=== PATIENT | female | born 1970 | race Caucasian/White ===

== ENCOUNTER 2017-01-04 16:14 | Emergency (ER) | payer SELFPAY ==
[~2017-01-04] VITALS: Ht 160 cm; Wt 100.0 kg
[2017-01-04] MEDS ORDERED: SODIUM CHLOR 0.9% 1000 ML INJ 1,000 ML IV SCH (16:28)
[2017-01-04] MEDS ORDERED: KETOROLAC TROMETHAMINE 30 MG/ML (IVP) VIAL IV PUSH ONE (16:30)
[2017-01-04 16:31] VITALS: BP 111/76; PULSE 97; RESP 19; TEMP 98.3; O2SAT 97
--- NOTE | 2017-01-04 16:55 | PD ---
HPI Chief Complaint: Abdominal Pain Time Seen by Provider: 16:40 Travel History International Travel<30 days: No Contact w/Intl Traveler<30days: No Traveled to known affect area: No History of Present Illness HPI 46-year-old female brought in via EMS with complaint of left lower abdominal pain that radiates to the groin. Patient states the pain started a couple hours ago today and reports nausea but denies any vomiting or diarrhea. She was given 4 mg of Zofran IV by EMS during transport. Patient has history of nephrolithiasis and diverticulitis. Patient denies any acute trouble voiding or hematuria. Patient denies any dizziness, lightheadedness, chest pain, shortness of breath or fevers PFSH Past Medical History Depression: Yes Diverticulitis: Yes Medical other: Yes (ADD) ?: Not : 4 Para: 3 : 1 Tubal Ligation: Yes Social History Alcohol Use: No Tobacco Use: Yes Substance Use: No Allergies-Medications (Allergen,Severity, Reaction): Coded Allergies: No Known Allergies (Unverified , 01/04/17) Review of Systems Except as stated in HPI: all other systems reviewed are Neg Physical Exam Narrative GENERAL: Well-nourished well-developed female complaining of left lower abdominal pain and nausea but no vomiting or diarrhea. SKIN: Focused skin assessment warm/dry. HEAD: Atraumatic. Normocephalic. EYES: Pupils equal and round. No scleral icterus. No injection or drainage. ENT: No nasal bleeding or discharge. Mucous membranes pink and moist. NECK: Trachea midline. No JVD. CARDIOVASCULAR: Regular rate and rhythm. No murmur appreciated. RESPIRATORY: No accessory muscle use. Clear to auscultation. Breath sounds equal bilaterally. GASTROINTESTINAL: Abdomen soft, non-tender, nondistended. Hepatic and splenic margins not palpable. MUSCULOSKELETAL: No obvious deformities. No clubbing. No cyanosis. No edema. NEUROLOGICAL: Awake and alert. No obvious cranial nerve deficits. Motor grossly within normal limits. Normal speech. PSYCHIATRIC: Appropriate mood and affect; insight and judgment normal. Data Data Last Documented VS Vital Signs Date Time Temp Pulse Resp B/P (MAP) Pulse Ox O2 Delivery O2 Flow Rate FiO2 01/04/17 18:00 82 17 116/69 (85) 97 Room Air 01/04/17 16:31 98.3 Orders Orders Complete Blood Count With Diff (01/04/17 16:28) Comprehensive Metabolic Panel (01/04/17 16:28) Lipase (01/04/17 16:28) Urinalysis - C+S If Indicated (01/04/17 16:28) Ct Abd/Pel W/O Iv Contrast (01/04/17 16:28) Iv Access Insert/Monitor (01/04/17 16:28) Ecg Monitoring (01/04/17 16:28) NPO (01/04/17 16:28) Sodium Chlor 0.9% 1000 Ml Inj (Ns 1000 M (01/04/17 16:28) Ed Urine Pregnancytest Poc (01/04/17 16:28) Ketorolac Inj (Toradol Inj) (01/04/17 16:30) Urine Culture (01/04/17 16:30) Ceftriaxone Inj (Rocephin Inj) (01/04/17 18:00) Labs Laboratory Tests Test 01/04/17 16:30 01/04/17 16:40 Urine Color YELLOW Urine Turbidity CLOUDY Urine pH 6.0 Urine Specific [place] 1.030 Urine Protein 30 mg/dL Urine Glucose (UA) NEG mg/dL Urine Ketones NEG mg/dL Urine Occult Blood MOD Urine Nitrite NEG Urine Bilirubin NEG Urine Urobilinogen LESS THAN 2.0 MG/DL Urine Leukocyte Esterase TRACE Urine RBC 81 /hpf Urine WBC 13 /hpf Urine Squamous Epithelial Cells 26 /hpf Urine Calcium Oxalate Crystals MOD /hpf Urine Amorphous Sediment RARE Urine Mucus FEW /lpf Microscopic Urinalysis Comment CULTURE INDICATED White Blood Count 16.2 TH/MM3 Red Blood Count 4.06 MIL/MM3 Hemoglobin 12.1 GM/DL Hematocrit 35.9 % Mean Corpuscular Volume 88.4 FL Mean Corpuscular Hemoglobin 29.8 PG Mean Corpuscular Hemoglobin Concent 33.8 % Red Cell Distribution Width 14.8 % Platelet Count 334 TH/MM3 Mean Platelet Volume 8.0 FL Neutrophils (%) (Auto) 62.8 % Lymphocytes (%) (Auto) 26.4 % Monocytes (%) (Auto) 9.3 % Eosinophils (%) (Auto) 0.8 % Basophils (%) (Auto) 0.7 % Neutrophils # (Auto) 10.2 TH/MM3 Lymphocytes # (Auto) 4.3 TH/MM3 Monocytes # (Auto) 1.5 TH/MM3 Eosinophils # (Auto) 0.1 TH/MM3 Basophils # (Auto) 0.1 TH/MM3 CBC Comment DIFF FINAL Differential Comment Blood Urea Nitrogen 10 MG/DL Creatinine 0.64 MG/DL Random Glucose 109 MG/DL Total Protein 7.1 GM/DL Albumin 2.9 GM/DL Calcium Level 7.5 MG/DL Alkaline Phosphatase 62 U/L Aspartate Amino Transf (AST/SGOT) 28 U/L Alanine Aminotransferase (ALT/SGPT) 24 U/L Total Bilirubin 0.2 MG/DL Sodium Level 139 MEQ/L Potassium Level 3.9 MEQ/L Chloride Level 107 MEQ/L Carbon Dioxide Level 23.5 MEQ/L Anion Gap 9 MEQ/L Estimat Glomerular Filtration Rate 100 ML/MIN Lipase 131 U/L MDM Medical Decision Making Medical Screen Exam Complete: Yes Emergency Medical Condition: Yes Medical Record Reviewed: Yes Differential Diagnosis Nephrolithiasis versus UTI versus diverticulitis versus gastroenteritis Narrative Course 46-year-old female presents to the ED with complaint of left lower quadrant abdominal pain and nausea. She denies any vomiting, diarrhea or fevers. The pain started a couple hours ago. She does have a history of nephrolithiasis and diverticulitis. She denies any acute difficulty voiding or hematuria. CBC , CMP, lipase, UA, abdominal CAT scan ordered and pending. 1 L normal saline bolus and 30 mg IV Toradol ordered. CBC: WBC 16.2 otherwise unremarkable, CMP: Shows no acute abnormality, LIPASE WITHIN NORMAL LIMITS AT 131, UA: High rbc's and wbc's and leukocyte Estrace with culture indicated and pending ABD CT: 1.30.7CM Left renal calculus with no hydronephrosis Patient given 1 g of Rocephin IV for pyelonephritis Dr. Pires, urologist oncology physician, called and recommended Cipro 500 mg by mouth 5 days, pain control and to follow-up with him and his office tomorrow Patient will be discharged home with prescription for Cipro for pyelonephritis and [place] for pain and mandatory referral to follow up with Dr. Pires. Diagnosis Primary Impression: Pyelonephritis Additional Impression: Nephrolithiasis Referrals: Salvador Pires MD Patient Instructions: General Instructions, Kidney Stones (ED), Urinary Tract Infection in Women (ED) Additional Instructions: Take Cipro as directed until gone Take [place] as directed as needed for pain, use caution as this medication may make you drowsy do not drive or operate heavy machinery with this medication Take Zofran as directed as needed for nausea Follow-up with Dr. Pires tomorrow in his office, a mandatory referral has been placed Return to the emergency department for any worsening symptoms Med/Other Pt SpecificInfo: Prescription(s) given Scripts Ondansetron Odt (Ondansetron Odt) 4 Mg Tab 4 MG SL Q6HR Y for Nausea/Vomiting, #12 TAB 0 Refills Prov: Kim Wallace 01/04/17 Ciprofloxacin (Cipro) 500 Mg Tab 500 MG PO BID for Infection for 5 Days, TAB 0 Refills Prov: Kim Wallace 01/04/17 Kim Wallace Jan 04, 2017 16:55
--- NOTE | 2017-01-04 17:21 | RADRPT ---
EXAM DATE/TIME: 01/04/2017 17:10 [facility] COMPARISON: No previous studies available for comparison. INDICATIONS : Left flank and lower quadrant pain. ORAL CONTRAST: No oral contrast ingested. RADIATION DOSE: 8.48 CTDIvol (mGy) MEDICAL HISTORY : Diverticulitis. Renal calculi. SURGICAL HISTORY : Tubal ligation. ENCOUNTER: Initial ACUITY: 1 day PAIN SCALE: 9/10 LOCATION: Left lower quadrant flank TECHNIQUE: Volumetric scanning of the abdomen and pelvis was performed. Using automated exposure control and ad justment of the mA and/or kV according to patient size, radiation dose was kept as low as reasonably achievable to obtain optimal diagnostic quality images. DICOM format image data is available electro nically for review and comparison. FINDINGS: LOWER LUNGS: The visualized lower lungs are clear. LIVER: Homogeneous density without lesion. There is no dilation of the biliary tree. No calcified gallston es. SPLEEN: Normal size without lesion. PANCREAS: Within normal limits. KIDNEYS: Normal in size and shape. There is no mass or hydronephrosis. There is a 1.3 x 0.7 cm left renal minal culus in the central collecting system. The ureters are unremarkable. ADRENAL GLANDS: Within normal limits. VASCULAR: There is no aortic aneurysm. BOWEL/MESENTERY: The stomach, small bowel, and colon demonstrate no acute abnormality. There is no free intraperitone al air or fluid. ABDOMINAL WALL: Within normal limits. RETROPERITONEUM: There is no lymphadenopathy. BLADDER: No wall thickening or mass. REPRODUCTIVE: Within normal limits. INGUINAL: There is no lymphadenopathy or hernia. MUSCULOSKELETAL: Within normal limits for patient age. CONCLUSION: 1.3 x 0.7 cm central left renal calculus with no hydronephrosis. Juarez Barker MD on January 04, 2017 at 17:17 Board Certified Radiologist. This report was verified electronically.
[2017-01-04 17:31] LABS: AUTOMATED NEUTROPHIL # 10.2 TH/MM3 (1.8-7.7); BASOPHIL # 0.1 TH/MM3 (0-0.2); BASOPHIL % 0.7 % (0.0-2.0); EOSINOPHIL # 0.1 TH/MM3 (0-0.4); EOSINOPHIL % 0.8 % (0.0-4.0); HEMATOCRIT 35.9 % (35.0-46.0); HEMO FLAGS DIFF FINAL; LYMPH % 26.4 % (9.0-44.0); LYMPHOCYTE # 4.3 TH/MM3 (1.0-4.8); MEAN CELL VOLUME 88.4 FL (80.0-100.0); MEAN CORPUSCULAR HEMOGLOBIN 29.8 PG (27.0-34.0); MEAN CORPUSCULAR HGB CONC 33.8 % (32.0-36.0); MONO % 9.3 % (0.0-8.0); NEUT % 62.8 % (16.0-70.0); PLATELET COUNT 334 TH/MM3 (150-450); RED BLOOD COUNT 4.06 MIL/MM3 (4.00-5.30); RED CELL DISTRIBUTION WIDTH 14.8 % (11.6-17.2); WHITE BLOOD COUNT 16.2 TH/MM3 (4.0-11.0)
[2017-01-04 17:34] LABS: BLOOD, URINE MOD (NEG); CALCIUM OXALATE CRYSTALS,URINE MOD /hpf; COMMENT (UR) CULTURE INDICATED; CULTURE IF INDICATED CULTURE INDICATED; GLUCOSE,URINE NEG (NEG); KETONE, URINE NEG (NEG); MUCUS URINE FEW /lpf (OCC); NITRITE,URINE NEG (NEG); SQUAMOUS EPITHELIAL CELL URINE 26 /hpf (0-5); URINE COLOR YELLOW (YELLW/STRAW)
[2017-01-04 17:48] LABS: ALKALINE PHOSPHATASE 62 U/L (45-117); TOTAL BILIRUBIN ADULT 0.2 MG/DL (0.2-1.0)
[2017-01-04 18:00] VITALS: BP 116/69; PULSE 82; RESP 17; O2SAT 97
[2017-01-04] MEDS ORDERED: cefTRIAXone INJ 1,000 MG in SODIUM CHLORIDE 0.9% INJ 100 ML IV ONE (18:00)
[2017-01-04 18:04] LABS: ALT (GPT) 24 U/L (10-53); ANION GAP 9 MEQ/L (5-15); AST (GOT) 28 U/L (15-37); BICARBONATE 23.5 MEQ/L (21.0-32.0); BLOOD UREA NITROGEN 10 MG/DL (7-18); CHLORIDE 107 MEQ/L (98-107); GLOMERULAR FILTRATION RATE 100 ML/MIN (>89); SODIUM (NA) 139 MEQ/L (136-145)
[2017-01-04 18:05] LABS: POTASSIUM 3.9 MEQ/L (3.5-5.1)
[2017-01-04] MEDS ORDERED: CIPR-9 PO (18:31)
[2017-01-04] MEDS ORDERED: ONDA4TAB7 SL (18:31)
[2017-01-04] MEDS ORDERED: NORC5TAB PO (18:33)
== END 2017-01-04 19:16 | disposition home or self-care (01) ==
LOC: NEPE 16:14
DX: N12 Tubulo-interstitial nephritis, not specified as acute or chronic (principal); B96.89 Other specified bacterial agents as the cause of diseases classified elsewhere; N20.0 Calculus of kidney; Z72.0 Tobacco use
CPT/HCPCS: 74176; 80053; 81001; 83690; 84703; 85025; 87086; 96365; 96375; 99285; J0696; J1885; J7030

== ENCOUNTER 2017-04-24 16:35 | Inpatient (IN) | payer SELFPAY ==
[~2017-04-24] VITALS: Ht 162.6 cm; Wt 111.0 kg
[~2017-04-24 16:35] MED LIST: CIPR-9 PO; NORC5TAB PO; ONDA4TAB7 SL
[2017-04-24 16:37] VITALS: BP 184/93; PULSE 110; RESP 20; TEMP 102.2; O2SAT 98
[2017-04-24 17:52] LABS: AUTOMATED NEUTROPHIL # 12.8 TH/MM3 (1.8-7.7); BASOPHIL # 0.1 TH/MM3 (0-0.2); BASOPHIL % 0.5 % (0.0-2.0); EOSINOPHIL % 0.1 % (0.0-4.0); HEMATOCRIT 34.4 % (35.0-46.0); HEMOGLOBIN 11.5 GM/DL (11.6-15.3); LYMPH % 12.2 % (9.0-44.0); MEAN CELL VOLUME 86.6 FL (80.0-100.0); MEAN CORPUSCULAR HGB CONC 33.5 % (32.0-36.0); MEAN PLATELET VOLUME 7.5 FL (7.0-11.0); MONO % 6.9 % (0.0-8.0); MONOCYTE # 1.1 TH/MM3 (0-0.9); NEUT % 80.3 % (16.0-70.0); PLATELET COUNT 320 TH/MM3 (150-450); RED BLOOD COUNT 3.97 MIL/MM3 (4.00-5.30); RED CELL DISTRIBUTION WIDTH 14.6 % (11.6-17.2)
[2017-04-24 18:09] LABS: ALBUMIN 3.3 GM/DL (3.4-5.0); ALKALINE PHOSPHATASE 68 U/L (45-117); ALT (GPT) 16 U/L (10-53); AST (GOT) 16 U/L (15-37); BICARBONATE 24.6 MEQ/L (21.0-32.0); BLOOD UREA NITROGEN 10 MG/DL (7-18); CALCIUM 8.6 MG/DL (8.5-10.1); CHLORIDE 103 MEQ/L (98-107); CREATININE 0.87 MG/DL (0.50-1.00); GLOMERULAR FILTRATION RATE 70 ML/MIN (>89); GLUCOSE,RANDOM 136 MG/DL (74-106); LIPASE 96 U/L (73-393); SODIUM (NA) 135 MEQ/L (136-145); TOTAL BILIRUBIN ADULT 0.3 MG/DL (0.2-1.0); TOTAL PROTEIN 7.9 GM/DL (6.4-8.2)
[2017-04-24] MEDS ORDERED: SODIUM CHLOR 0.9% 1000 ML INJ 1,000 ML IV ONE ×3 (18:12)
[2017-04-24 18:14] VITALS: BP 137/81; PULSE 91; RESP 16; TEMP 102.7; O2SAT 100
[2017-04-24] MEDS ORDERED: PIPERACIL-TAZO 4.5 GM PREMIX 100 ML IV ONE (18:15)
--- NOTE | 2017-04-24 18:25 | PD ---
HPI Chief Complaint: Abdominal Pain Time Seen by Provider: 18:01 Travel History International Travel<30 days: No Contact w/Intl Traveler<30days: No Traveled to known affect area: No History of Present Illness HPI Patient is a 47-year-old female with a history of kidney stones and diverticulitis presents the emergency department for evaluation of fever diarrhea left flank plain. The patient states been going on for the past 2 days , she states she's been feeling chilly. Has not taken any Tylenol nor ibuprofen prior to arrival. Patient denies any dysuria or blood in the urine. Endorses nausea without vomiting. Denies any blood in the stool. States symptoms are moderate, gradually worsening, context as above, associated signs symptoms as above. PFSH Past Medical History Depression: Yes Diverticulitis: Yes Influenza Vaccination: Yes ?: Not : 4 Para: 3 : 1 Tubal Ligation: Yes Social History Alcohol Use: No Tobacco Use: Yes (1/2 ppd) Substance Use: Yes (pot ) Allergies-Medications (Allergen,Severity, Reaction): Coded Allergies: No Known Allergies (Unverified Adverse Reaction, Unknown, 04/24/17) Reported Meds & Prescriptions Reported Meds & Active Scripts Active No Active Prescriptions or Reported Medications Review of Systems Except as stated in HPI: all other systems reviewed are Neg Physical Exam Narrative GENERAL: Well-developed well-nourished, appears uncomfortable but nontoxic. SKIN: Focused skin assessment warm/dry. HEAD: Atraumatic. Normocephalic. EYES: Pupils equal and round. No scleral icterus. No injection or drainage. ENT: No nasal bleeding or discharge. Mucous membranes pink and moist. NECK: Trachea midline. No JVD. CARDIOVASCULAR: Regular rate and rhythm. No murmur appreciated. RESPIRATORY: No accessory muscle use. Clear to auscultation. Breath sounds equal bilaterally. GASTROINTESTINAL: Abdomen soft, non-tender, nondistended. Hepatic and splenic margins not palpable. Unimpressive for either CVA tenderness or anterior abdominal tenderness. No rebound no percussive tenderness, psoas and obturator signs negative. MUSCULOSKELETAL: No obvious deformities. No clubbing. No cyanosis. No edema. NEUROLOGICAL: Awake and alert. No obvious cranial nerve deficits. Motor grossly within normal limits. Normal speech. PSYCHIATRIC: Appropriate mood and affect; insight and judgment normal. Data Data Last Documented VS Vital Signs Date Time Temp Pulse Resp B/P (MAP) Pulse Ox O2 Delivery O2 Flow Rate FiO2 04/24/17 21:19 100.3 04/24/17 19:30 96 22 98 Room Air Orders Orders Complete Blood Count With Diff (04/24/17 16:48) Comprehensive Metabolic Panel (04/24/17 16:48) Urinalysis - C+S If Indicated (04/24/17 16:48) Lipase (04/24/17 16:48) Lactic Acid (04/24/17 16:49) Influenzae A/B Antigen (04/24/17 16:49) Ct Abd/Pel W Iv Contrast(Rout) (04/24/17 ) Blood Culture (04/24/17 18:09) Sodium Chlor 0.9% 1000 Ml Inj (Ns 1000 M (04/24/17 18:12) Sodium Chlor 0.9% 1000 Ml Inj (Ns 1000 M (04/24/17 18:12) Sodium Chlor 0.9% 1000 Ml Inj (Ns 1000 M (04/24/17 18:12) Piperacil-Tazo 4.5 Gm Premix (Zosyn 4.5 (04/24/17 18:15) Acetaminophen (Tylenol) (04/24/17 18:30) Ondansetron Inj (Zofran Inj) (04/24/17 18:30) Iohexol 350 Inj (Omnipaque 350 Inj) (04/24/17 19:09) Urine Culture (04/24/17 18:37) Admit Order (Ed Use Only) (04/24/17 21:25) Labs Laboratory Tests Test 04/24/17 17:15 04/24/17 18:37 White Blood Count 16.0 TH/MM3 Red Blood Count 3.97 MIL/MM3 Hemoglobin 11.5 GM/DL Hematocrit 34.4 % Mean Corpuscular Volume 86.6 FL Mean Corpuscular Hemoglobin 29.0 PG Mean Corpuscular Hemoglobin Concent 33.5 % Red Cell Distribution Width 14.6 % Platelet Count 320 TH/MM3 Mean Platelet Volume 7.5 FL Neutrophils (%) (Auto) 80.3 % Lymphocytes (%) (Auto) 12.2 % Monocytes (%) (Auto) 6.9 % Eosinophils (%) (Auto) 0.1 % Basophils (%) (Auto) 0.5 % Neutrophils # (Auto) 12.8 TH/MM3 Lymphocytes # (Auto) 2.0 TH/MM3 Monocytes # (Auto) 1.1 TH/MM3 Eosinophils # (Auto) 0.0 TH/MM3 Basophils # (Auto) 0.1 TH/MM3 CBC Comment DIFF FINAL Differential Comment Blood Urea Nitrogen 10 MG/DL Creatinine 0.87 MG/DL Random Glucose 136 MG/DL Total Protein 7.9 GM/DL Albumin 3.3 GM/DL Calcium Level 8.6 MG/DL Alkaline Phosphatase 68 U/L Aspartate Amino Transf (AST/SGOT) 16 U/L Alanine Aminotransferase (ALT/SGPT) 16 U/L Total Bilirubin 0.3 MG/DL Sodium Level 135 MEQ/L Potassium Level 4.1 MEQ/L Chloride Level 103 MEQ/L Carbon Dioxide Level 24.6 MEQ/L Anion Gap 7 MEQ/L Estimat Glomerular Filtration Rate 70 ML/MIN Lactic Acid Level 2.4 mmol/L Lipase 96 U/L Urine Color YELLOW Urine Turbidity HAZY Urine pH 7.0 Urine Specific [place] 1.014 Urine Protein TRACE mg/dL Urine Glucose (UA) NEG mg/dL Urine Ketones NEG mg/dL Urine Occult Blood SMALL Urine Nitrite NEG Urine Bilirubin NEG Urine Urobilinogen LESS THAN 2.0 MG/DL Urine Leukocyte Esterase MOD Urine RBC 2 /hpf Urine WBC 50 /hpf Urine Squamous Epithelial Cells 4 /hpf Urine Mucus FEW /lpf Microscopic Urinalysis Comment CULTURE INDICATED MDM Medical Decision Making Medical Screen Exam Complete: Yes Emergency Medical Condition: Yes Differential Diagnosis Fever, sepsis, UTI, pyelonephritis, infected kidney stone, diverticulitis, diverticulosis. Narrative Course Patient roomed in emergency primary, history of tubal ligation the patient will be taken a CAT scan, lactic acid minimally elevated to 0.5, will discuss with the oncoming provider in 1900 to follow-up CAT scan and disposition the patient properly. Blood cultures drawn, will be started empirically on 3 L normal saline as well as Zosyn 4.5 IV. Scripts No Active Prescriptions or Reported Meds Fabricio Hernandez MD Apr 24, 2017 18:24
[2017-04-24] MEDS ORDERED: ONDANSETRON HCL 4 MG/2 ML VIAL IV PUSH ONE (18:30)
[2017-04-24] MEDS ORDERED: ACETAMINOPHEN 500 MG CPLT PO ONE (18:30)
[2017-04-24] MEDS ORDERED: IOHEXOL 350 MG/ML 10 ML VIAL (for RAD DIAG) IVCONTRAST ONE (19:09)
[2017-04-24 19:17] LABS: BILIRUBIN, URINE NEG (NEG); BLOOD, URINE SMALL (NEG); GLUCOSE,URINE NEG (NEG); KETONE, URINE NEG (NEG); MUCUS URINE FEW /lpf (OCC); NITRITE,URINE NEG (NEG); SQUAMOUS EPITHELIAL CELL URINE 4 /hpf (0-5); URINE COLOR YELLOW (YELLW/STRAW); URINE LEUKOCYTE ESTERASE MOD (NEG)
[2017-04-24 19:30] VITALS: BP 116/53; PULSE 96; RESP 22; TEMP 101.3; O2SAT 98
--- NOTE | 2017-04-24 20:00 | RADRPT ---
EXAM DATE/TIME: 04/24/2017 18:56 [facility] COMPARISON: No previous studies available for comparison. INDICATIONS : Left flank pain with nausea, vomitng and diarrhea for two days. IV CONTRAST: 96 cc Omnipaque 350 (iohexol) IV ORAL CONTRAST: No oral contrast ingested. RADIATION DOSE: 13.28 CTDIvol (mGy) ; Patient body habitus MEDICAL HISTORY : None SURGICAL HISTORY : Tubal ligation. ENCOUNTER: Initial ACUITY: 1 day PAIN SCALE: 7/10 LOCATION: Left flank TECHNIQUE: Volumetric scanning of the abdomen and pelvis was performed. Using automated exposure control and ad justment of the mA and/or kV according to patient size, radiation dose was kept as low as reasonably achievable to obtain optimal diagnostic quality images. DICOM format image data is available electro nically for review and comparison. FINDINGS: LOWER LUNGS: The visualized lower lungs are clear. LIVER: Homogeneous density without lesion. There is no dilation of the biliary tree. Small calcified gallst one in the gallbladder. SPLEEN: Normal size without lesion. PANCREAS: Within normal limits. KIDNEYS: 11 mm calculus in the left renal pelvis. No evidence for hydronephrosis. Kidneys otherwise within nor mal limits. ADRENAL GLANDS: Within normal limits. VASCULAR: There is no aortic aneurysm. BOWEL/MESENTERY: No evidence of bowel dilatation. No free air or free fluid. Appendix within normal limits. ABDOMINAL WALL: Within normal limits. RETROPERITONEUM: There is no lymphadenopathy. BLADDER: No wall thickening or mass. REPRODUCTIVE: Within normal limits. INGUINAL: There is no lymphadenopathy or hernia. MUSCULOSKELETAL: Within normal limits for patient age. CONCLUSION: 1. 11 mm calculus in the left renal pelvis. No evidence hydronephrosis. 2. Small calcified gallstone. No pericholecystic inflammatory change. Haroldo Buck MD on April 24, 2017 at 19:55 Board Certified Radiologist. This report was verified electronically.
--- NOTE | 2017-04-24 20:58 | PD ---
Physical Exam Narrative Received sign out from previous team to follow up CT scan and admit. 47yo F with left flank pain, fever and diarrhea. Labs reviewed, leukocytosis at 16. Lactic acid elevated at 2.4. UA showed moderate leukocyte. WBC 50. CTa/p showed 11mm calculus left renal pelvis. No hydronephrosis. No pericholecystic inflammatory change. Pt is febrile at 102.2 and tachycardic at 110bpm. Pt given NS IVF x3, acetaminophen, zofran and zosyn. Pt reevaluated at bedside and nausea has improved. Still with some left flank pain. Pt meets sepsis criteria and will admit for IV antibiotics. Discussed with Dr. Aguirre and accepted to her service. Data Data Last Documented VS Vital Signs Date Time Temp Pulse Resp B/P (MAP) Pulse Ox O2 Delivery O2 Flow Rate FiO2 04/24/17 21:19 100.3 04/24/17 19:30 96 22 98 Room Air Orders Orders Complete Blood Count With Diff (04/24/17 16:48) Comprehensive Metabolic Panel (04/24/17 16:48) Urinalysis - C+S If Indicated (04/24/17 16:48) Lipase (04/24/17 16:48) Lactic Acid (04/24/17 16:49) Influenzae A/B Antigen (04/24/17 16:49) Ct Abd/Pel W Iv Contrast(Rout) (04/24/17 ) Blood Culture (04/24/17 18:09) Sodium Chlor 0.9% 1000 Ml Inj (Ns 1000 M (04/24/17 18:12) Sodium Chlor 0.9% 1000 Ml Inj (Ns 1000 M (04/24/17 18:12) Sodium Chlor 0.9% 1000 Ml Inj (Ns 1000 M (04/24/17 18:12) Piperacil-Tazo 4.5 Gm Premix (Zosyn 4.5 (04/24/17 18:15) Acetaminophen (Tylenol) (04/24/17 18:30) Ondansetron Inj (Zofran Inj) (04/24/17 18:30) Iohexol 350 Inj (Omnipaque 350 Inj) (04/24/17 19:09) Urine Culture (04/24/17 18:37) Admit Order (Ed Use Only) (04/24/17 21:25) Labs Laboratory Tests Test 04/24/17 17:15 04/24/17 18:37 White Blood Count 16.0 TH/MM3 Red Blood Count 3.97 MIL/MM3 Hemoglobin 11.5 GM/DL Hematocrit 34.4 % Mean Corpuscular Volume 86.6 FL Mean Corpuscular Hemoglobin 29.0 PG Mean Corpuscular Hemoglobin Concent 33.5 % Red Cell Distribution Width 14.6 % Platelet Count 320 TH/MM3 Mean Platelet Volume 7.5 FL Neutrophils (%) (Auto) 80.3 % Lymphocytes (%) (Auto) 12.2 % Monocytes (%) (Auto) 6.9 % Eosinophils (%) (Auto) 0.1 % Basophils (%) (Auto) 0.5 % Neutrophils # (Auto) 12.8 TH/MM3 Lymphocytes # (Auto) 2.0 TH/MM3 Monocytes # (Auto) 1.1 TH/MM3 Eosinophils # (Auto) 0.0 TH/MM3 Basophils # (Auto) 0.1 TH/MM3 CBC Comment DIFF FINAL Differential Comment Blood Urea Nitrogen 10 MG/DL Creatinine 0.87 MG/DL Random Glucose 136 MG/DL Total Protein 7.9 GM/DL Albumin 3.3 GM/DL Calcium Level 8.6 MG/DL Alkaline Phosphatase 68 U/L Aspartate Amino Transf (AST/SGOT) 16 U/L Alanine Aminotransferase (ALT/SGPT) 16 U/L Total Bilirubin 0.3 MG/DL Sodium Level 135 MEQ/L Potassium Level 4.1 MEQ/L Chloride Level 103 MEQ/L Carbon Dioxide Level 24.6 MEQ/L Anion Gap 7 MEQ/L Estimat Glomerular Filtration Rate 70 ML/MIN Lactic Acid Level 2.4 mmol/L Lipase 96 U/L Urine Color YELLOW Urine Turbidity HAZY Urine pH 7.0 Urine Specific [place] 1.014 Urine Protein TRACE mg/dL Urine Glucose (UA) NEG mg/dL Urine Ketones NEG mg/dL Urine Occult Blood SMALL Urine Nitrite NEG Urine Bilirubin NEG Urine Urobilinogen LESS THAN 2.0 MG/DL Urine Leukocyte Esterase MOD Urine RBC 2 /hpf Urine WBC 50 /hpf Urine Squamous Epithelial Cells 4 /hpf Urine Mucus FEW /lpf Microscopic Urinalysis Comment CULTURE INDICATED MDM Supervised Visit with MARIAH: No Sepsis Criteria SIRS Criteria (2 or more): Temp > 100.9 or < 96.8, Heart rate over 90, WBC > 49917, < 4000 or > 10% bands Sepsis Criteria (SIRS+source): Infect source susp/known Severe Sepsis (+one): Lactate >2 Diagnosis Primary Impression: Pyelonephritis Admitting Information Admitting Physician Requests: Admit Scripts No Active Prescriptions or Reported Meds Negar Castrejon DO Apr 24, 2017 20:58
[2017-04-24 21:19] VITALS: TEMP 100.3
[2017-04-24] MEDS ORDERED: MAGNESIUM HYDROXIDE SUSP 30 ML CUP PO PRN (21:30)
[2017-04-24] MEDS ORDERED: BISACODYL 10 MG SUPP RECTAL PRN (21:30)
[2017-04-24] MEDS ORDERED: LACTULOSE SYRUP 20 GM/30 ML CUP PO PRN (21:30)
[2017-04-24] MEDS ORDERED: SENNOSIDES 8.6 MG TAB PO PRN (21:30)
[2017-04-24] MEDS ORDERED: NALOXONE HCL 0.4 MG/ML AMP IV PUSH PRN (21:30)
[2017-04-24] MEDS ORDERED: SODIUM CHLORIDE 0.9% FLUSH 10 ML FLUSH IV FLUSH PRN (21:30)
[2017-04-24] MEDS ORDERED: ONDANSETRON HCL 4 MG/2 ML VIAL IVP PRN (21:30)
[2017-04-24] MEDS ORDERED: cefTRIAXone INJ 1,000 MG in SODIUM CHLORIDE 0.9% INJ 100 ML IV SCH (22:00)
[2017-04-24] MEDS: SODIUM CHLOR 0.9% 1000 ML INJ 1,000 ML IV SCH (22:15)
[2017-04-24 23:00] VITALS: BP 115/70; PULSE 80; RESP 16; TEMP 99.2; O2SAT 98
[2017-04-25] VITALS: PULSE 84
[2017-04-25] MEDS: ACETAMINOPHEN 325 MG TAB PO PRN ×3 (01:06→15:04)
[2017-04-25 01:43] LABS: AUTOMATED NEUTROPHIL # 8.6 TH/MM3 (1.8-7.7); BASOPHIL # 0.1 TH/MM3 (0-0.2); BASOPHIL % 0.7 % (0.0-2.0); EOSINOPHIL % 0.4 % (0.0-4.0); HEMATOCRIT 27.9 % (35.0-46.0); HEMOGLOBIN 9.2 GM/DL (11.6-15.3); LYMPH % 19.4 % (9.0-44.0); LYMPHOCYTE # 2.4 TH/MM3 (1.0-4.8); MEAN CELL VOLUME 87.5 FL (80.0-100.0); MEAN CORPUSCULAR HEMOGLOBIN 28.8 PG (27.0-34.0); MEAN CORPUSCULAR HGB CONC 32.9 % (32.0-36.0); MEAN PLATELET VOLUME 7.1 FL (7.0-11.0); MONO % 10.7 % (0.0-8.0); MONOCYTE # 1.3 TH/MM3 (0-0.9); NEUT % 68.8 % (16.0-70.0); PLATELET COUNT 266 TH/MM3 (150-450); RED BLOOD COUNT 3.19 MIL/MM3 (4.00-5.30); RED CELL DISTRIBUTION WIDTH 14.4 % (11.6-17.2); WHITE BLOOD COUNT 12.5 TH/MM3 (4.0-11.0)
[2017-04-25 02:17] LABS: BICARBONATE 22.3 MEQ/L (21.0-32.0); CALCIUM 7.3 MG/DL (8.5-10.1); CREATININE 0.84 MG/DL (0.50-1.00)
[2017-04-25 02:40] LABS: CALCIUM-PROTEIN CORRECTED 7.8 MG/DL (8.5-10.1); TOTAL PROTEIN 6.2 GM/DL (6.4-8.2)
[2017-04-25 03:00] VITALS: BP 107/60; PULSE 81; RESP 24; TEMP 99.5; O2SAT 97
[2017-04-25] MEDS: MORPHINE SULFATE 2 MG/ML INJ IV PUSH PRN ×2 (03:07→22:39)
[2017-04-25] MEDS ORDERED: SODIUM CHLOR 0.9% 1000 ML INJ 1,000 ML IV ONE (03:15)
--- NOTE | 2017-04-25 03:19 | HHI.HP ---
[facility] No Primary Care Physician Admission Diagnosis Sepsis secondary to pyelonephritis Diagnoses: Travel History International Travel<30 Days: No Contact w/Intl Traveler <30 Da: No Traveled to Known Affected Are: No History of Present Illness 47-year-old female with a past medical history significant for nephrolithiasis presents with lower abdominal and left-sided flank pain with accompanying nausea and vomiting that started yesterday. She endorses subjective fever/ chills at home and was febrile to 102.7 in the emergency department. CT of the abdomen/pelvis was significant for an 11 mm calculus in the left renal pelvis. UA showed 50 WBCs, moderate leukocyte esterase and small occult blood. Lactic acid initially 2.4, now 3.0. Review of Systems Positive fever/chills Denies blurry vision, otorrhea, rhinorrhea Denies sore throat and cough No chest pain, palpitations, shortness of breath Positive abdominal/flank pain Denies constipation/diarrhea. Positive nausea/vomiting Denies muscle pain/weakness No rashes Past Family Social History Past Medical History History of nephrolithiasis History of diverticulitis Past Surgical History BTL Stone retrieval Reported Medications Reported Meds & Active Scripts Active No Active Prescriptions or Reported Medications Allergies: Coded Allergies: No Known Allergies (Unverified Adverse Reaction, Unknown, 04/24/17) Family History Denies family history of DM/CAD Social History Smokes a half a pack per day 20 years. Denies alcohol. Occasional marijuana use. Denies all other illicit drugs. Physical Exam Vital Signs Vital Signs Date Time Temp Pulse Resp B/P (MAP) Pulse Ox O2 Delivery O2 Flow Rate FiO2 04/24/17 23:09 04/24/17 23:00 99.2 80 16 115/70 (85) 98 04/24/17 21:19 100.3 04/24/17 19:30 101.3 96 22 116/53 (74) 98 Room Air 04/24/17 18:14 102.7 91 16 137/81 (99) 100 Room Air 04/24/17 16:37 102.2 110 20 184/93 (123) 98 Physical Exam GENERAL: female lying in bed SKIN: No rashes, ecchymoses or lesions. Cool and dry. HEAD: Atraumatic. Normocephalic. No temporal or scalp tenderness. EYES: Pupils equal round and reactive. Extraocular motions intact. No scleral icterus. No injection or drainage. ENT: Nose without bleeding, purulent drainage or septal hematoma. Throat without erythema, tonsillar hypertrophy or exudate. Uvula midline. Airway patent. NECK: Trachea midline. No JVD or lymphadenopathy. Supple, nontender, no meningeal signs. CARDIOVASCULAR: Regular rate and rhythm without murmurs, gallops, or rubs. RESPIRATORY: Clear to auscultation. Breath sounds equal bilaterally. No wheezes , rales, or rhonchi. GASTROINTESTINAL: Abdomen soft, nondistended. Tender to palpation in left lower quadrant. No hepato-splenomegaly, or palpable masses. No guarding. : No CVA tenderness MUSCULOSKELETAL: Extremities without clubbing, cyanosis, or edema. No joint tenderness, effusion, or edema noted. No calf tenderness. NEUROLOGICAL: Awake and alert. Cranial nerves II through XII intact. Motor and sensory grossly within normal limits. Normal speech. Laboratory Laboratory Tests Test 04/24/17 17:15 04/24/17 18:37 04/25/17 01:35 White Blood Count 16.0 12.5 Red Blood Count 3.97 3.19 Hemoglobin 11.5 9.2 Hematocrit 34.4 27.9 Mean Corpuscular Volume 86.6 87.5 Mean Corpuscular Hemoglobin 29.0 28.8 Mean Corpuscular Hemoglobin Concent 33.5 32.9 Red Cell Distribution Width 14.6 14.4 Platelet Count 320 266 Mean Platelet Volume 7.5 7.1 Neutrophils (%) (Auto) 80.3 68.8 Lymphocytes (%) (Auto) 12.2 19.4 Monocytes (%) (Auto) 6.9 10.7 Eosinophils (%) (Auto) 0.1 0.4 Basophils (%) (Auto) 0.5 0.7 Neutrophils # (Auto) 12.8 8.6 Lymphocytes # (Auto) 2.0 2.4 Monocytes # (Auto) 1.1 1.3 Eosinophils # (Auto) 0.0 0.0 Basophils # (Auto) 0.1 0.1 CBC Comment DIFF FINAL DIFF FINAL Differential Comment Blood Urea Nitrogen 10 8 Creatinine 0.87 0.84 Random Glucose 136 188 Total Protein 7.9 6.2 Albumin 3.3 Calcium Level 8.6 7.3 Alkaline Phosphatase 68 Aspartate Amino Transf (AST/SGOT) 16 Alanine Aminotransferase (ALT/SGPT) 16 Total Bilirubin 0.3 Sodium Level 135 138 Potassium Level 4.1 3.6 Chloride Level 103 107 Carbon Dioxide Level 24.6 22.3 Anion Gap 7 9 Estimat Glomerular Filtration Rate 70 73 Lactic Acid Level 2.4 3.0 Lipase 96 Urine Color YELLOW Urine Turbidity HAZY Urine pH 7.0 Urine Specific Yeoman 1.014 Urine Protein TRACE Urine Glucose (UA) NEG Urine Ketones NEG Urine Occult Blood SMALL Urine Nitrite NEG Urine Bilirubin NEG Urine Urobilinogen LESS THAN 2.0 Urine Leukocyte Esterase MOD Urine RBC 2 Urine WBC 50 Urine Squamous Epithelial Cells 4 Urine Mucus FEW Microscopic Urinalysis Comment CULTURE INDICATED Protein Corrected Calcium 7.8 Date/Time Source Procedure Growth Status 04/24/17 17:15 Blood Peripheral Aerobic Blood Culture Pending Received 04/24/17 17:15 Blood Peripheral Anaerobic Blood Culture Pending Received 04/24/17 17:15 Nasal Washing Influenza Types A,B Antigen (GIULIANO) - Final NEGATIVE FOR FLU A AND B ANTIGEN.... Complete 04/24/17 18:37 Urine Clean Catch Urine Culture Pending Received Result Diagram: 04/25/17 0135 04/25/17 013 Caprini VTE Risk Assessment Caprini VTE Risk Assessment: No/Low Risk (score <= 1) Caprini Risk Assessment Model Point Value = 1 Point Value = 2 Point Value = 3 Point Value = 5 Age 41-60 Minor surgery BMI > 25 kg/m2 Swollen legs Varicose veins or History of unexplained or recurrent spontaneous Oral contraceptives or hormone replacement Sepsis (< 1 month) Serious lung disease, including pneumonia (< 1 month) Abnormal pulmonary function Acute myocardial infarction Congestive heart failure (< 1 month) History of inflammatory bowel disease Medical patient at bed rest Age 61-74 Arthroscopic surgery Major open surgery (> 45 min) Laparoscopic surgery (> 45 min) Malignancy Confined to bed (> 72 hours) Immobilizing plaster cast Central venous access Age >= 75 History of VTE Family history of VTE Factor V Leiden Prothrombin [id number] Lupus anticoagulant Anticardiolipin antibodies Elevated serum homocysteine Heparin-induced thrombocytopenia Other congenital or acquired thrombophilia Stroke (< 1 month) Elective arthroplasty Hip, pelvis, or leg fracture Acute spinal cord injury (< 1 month) Prophylaxis Regimen Total Risk Factor Score Risk Level Prophylaxis Regimen 0-1 Low Early ambulation 2 Moderate Order ONE of the following: *Sequential Compression Device (SCD) *Heparin 5000 units SQ BID 3-4 Higher Order ONE of the following medications: *Heparin 5000 units SQ TID *Enoxaparin/Lovenox 40 mg SQ daily (WT < 150 kg, CrCl > 30 mL/min) *Enoxaparin/Lovenox 30 mg SQ daily (WT < 150 kg, CrCl > 10-29 mL/min) *Enoxaparin/Lovenox 30 mg SQ BID (WT < 150 kg, CrCl > 30 mL/min) AND/OR *Sequential Compression Device (SCD) 5 or more Highest Order ONE of the following medications: *Heparin 5000 units SQ TID (Preferred with Epidurals) *Enoxaparin/Lovenox 40 mg SQ daily (WT < 150 kg, CrCl > 30 mL/min) *Enoxaparin/Lovenox 30 mg SQ daily (WT < 150 kg, CrCl > 10-29 mL/min) *Enoxaparin/Lovenox 30 mg SQ BID (WT < 150 kg, CrCl > 30 mL/min) AND *Sequential Compression Device (SCD) Assessment and Plan Assessment and Plan Assessment/plan: 1. Sepsis/UTI/renal calculus Patient with leukocytosis, fever and elevated lactic acid Zosyn CT showed 11 mm calculus in left renal pelvis, no evidence of hydronephrosis Urine culture pending Blood cultures pending Monitor for signs of shock Morphine for pain IVFs FEN Heart healthy diet Electrolytes: monitor and replete prn NS at 125 cc/hr SCDs Physician Certification 2 Midnight Certification Type: Admission for Inpatient Services Order for Inpatient Services The services are ordered in accordance with Medicare regulations or non- Medicare payer requirements, as applicable. In the case of services not specified as inpatient-only, they are appropriately provided as inpatient services in accordance with the 2-midnight benchmark. Estimated LOS (days): 2 2 days is the estimated time the patient will need to remain in the hospital, assuming treatment plan goals are met and no additional complications. Post-Hospital Plan: Not yet determined Jeannine Aguirre MD Apr 25, 2017 03:19
[2017-04-25] MEDS: PIPERACIL-TAZO 3.375 GM PREMIX 50 ML IV SCH ×4 (03:38→22:39)
[2017-04-25] MEDS: SODIUM CHLOR 0.9% 1000 ML INJ 1,000 ML IV SCH ×3 (05:25→18:01)
[2017-04-25 08:50] VITALS: BP 110/63; PULSE 79; RESP 16; TEMP 98.9; O2SAT 96
[2017-04-25] MEDS ORDERED: DOCUSATE SODIUM 50 MG/SENNA 8.6 MG TAB PO SCH (09:00)
[2017-04-25] MEDS ORDERED: PNEUMOCOCCAL POLYVALENT INJ 25 MCG/0.5 ML SYR IM ONE (09:00)
[2017-04-25] MEDS: SODIUM CHLORIDE 0.9% FLUSH 10 ML FLUSH IV FLUSH SCH ×2 (09:00→21:00)
[2017-04-25] MEDS ORDERED: INFLUENZA VIRUS VACCINE (QUADRIVALENT) 0.5 ML SYR IM ONE (09:00)
--- NOTE | 2017-04-25 11:26 | HHI.PR ---
Subjective Remarks Follow-up pyelonephritis/left renal nephrolithiasis 04/25/17-patient seen and examined, Tmax 102.7 however currently afebrile. Still continues to complain of left flank pain. Denies any nausea or vomiting Objective Vitals Vital Signs Date Time Temp Pulse Resp B/P (MAP) Pulse Ox O2 Delivery O2 Flow Rate FiO2 04/25/17 08:50 98.9 79 16 110/63 (79) 96 04/25/17 03:00 99.5 81 24 107/60 (76) 97 04/25/17 00:00 84 04/24/17 23:09 04/24/17 23:00 99.2 80 16 115/70 (85) 98 04/24/17 21:19 100.3 04/24/17 19:30 101.3 96 22 116/53 (74) 98 Room Air 04/24/17 18:14 102.7 91 16 137/81 (99) 100 Room Air 04/24/17 16:37 102.2 110 20 184/93 (123) 98 I/O 04/24/17 04/24/17 04/24/17 04/25/17 04/25/17 04/25/17 07:00 15:00 23:00 07:00 15:00 23:00 Intake Total 3100 ml 1755 ml Output Total 400 ml Balance 3100 ml 1355 ml Intake Oral 442 ml IV Total 3100 ml 1313 ml Output Urine Total 400 ml Result Diagram: 04/25/17 0135 04/25/17 0135 Imaging Last Impressions Abdomen/Pelvis CT 04/24/17 0000 Signed Impressions: Service Date/Time: Monday, April 24, 2017 18:56 - CONCLUSION: 1. 11 mm calculus in the left renal pelvis. No evidence hydronephrosis. 2. Small calcified gallstone. No pericholecystic inflammatory change. Haroldo Buck MD Objective Remarks GENERAL: NAD SKIN: Warm and dry. HEAD: Normocephalic. EYES: No scleral icterus. No injection or drainage. NECK: Supple, trachea midline. No JVD or lymphadenopathy. CARDIOVASCULAR: Regular rate and rhythm without murmurs, gallops, or rubs. RESPIRATORY: Breath sounds equal bilaterally. No accessory muscle use. GASTROINTESTINAL: Abdomen soft, non-tender, nondistended. MUSCULOSKELETAL: No cyanosis, or edema. BACK: Nontender without obvious deformity.+ left CVA tenderness. A/P Problem List: (1) Left nephrolithiasis ICD Code: N20.0 - Calculus of kidney (2) Pyelonephritis ICD Code: N12 - Tubulo-interstitial nephritis, not specified as acute or chronic Status: Acute Assessment and Plan 47-year-old female with 1. Sepsis/UTI/renal calculus CT showed 11 mm calculus in left renal pelvis, no evidence of hydronephrosis Currently on IV Zosyn pending culture report Will consult urology for evaluation for possible cystoscopy Start Flomax 0.4 mg at bedtime Continue aggressive IV fluid hydration Morphine for pain when necessary DVT prophylaxis: Bilateral SCDs Giorgio Smith MD Apr 25, 2017 11:26
[2017-04-25 12:25] VITALS: BP 109/62; PULSE 86; RESP 16; TEMP 99.1
[2017-04-25 15:40] VITALS: BP 116/71; PULSE 84; RESP 16; TEMP 100; O2SAT 71
[2017-04-25] MEDS: KETOROLAC TROMETHAMINE 30 MG/ML (IVP) VIAL IV PUSH PRN (17:57)
[2017-04-25 20:00] VITALS: BP 127/65; PULSE 78; RESP 16; TEMP 99.1; O2SAT 97
[2017-04-25] MEDS: TAMSULOSIN HCL 0.4 MG CAP PO SCH (20:19)
[2017-04-26] VITALS: BP 126/61; PULSE 75; RESP 18; TEMP 99.6; O2SAT 94
[2017-04-26] MEDS: PIPERACIL-TAZO 3.375 GM PREMIX 50 ML IV SCH ×4 (03:52→21:37)
[2017-04-26 04:00] VITALS: BP 116/56; PULSE 96; RESP 18; TEMP 100.2; O2SAT 94
[2017-04-26 07:44] VITALS: BP 121/56; PULSE 84; RESP 20; TEMP 99.6; O2SAT 95
[2017-04-26 07:53] LABS: AUTOMATED NEUTROPHIL # 7.2 TH/MM3 (1.8-7.7); BASOPHIL % 0.4 % (0.0-2.0); EOSINOPHIL % 0.5 % (0.0-4.0); HEMATOCRIT 26.9 % (35.0-46.0); LYMPH % 21.5 % (9.0-44.0); LYMPHOCYTE # 2.3 TH/MM3 (1.0-4.8); MEAN CORPUSCULAR HEMOGLOBIN 29.2 PG (27.0-34.0); MEAN CORPUSCULAR HGB CONC 33.5 % (32.0-36.0); MEAN PLATELET VOLUME 7.4 FL (7.0-11.0); MONO % 10.5 % (0.0-8.0); MONOCYTE # 1.1 TH/MM3 (0-0.9); NEUT % 67.1 % (16.0-70.0); PLATELET COUNT 254 TH/MM3 (150-450); RED BLOOD COUNT 3.09 MIL/MM3 (4.00-5.30); RED CELL DISTRIBUTION WIDTH 14.2 % (11.6-17.2); WHITE BLOOD COUNT 10.8 TH/MM3 (4.0-11.0)
[2017-04-26 08:14] LABS: BICARBONATE 23.9 MEQ/L (21.0-32.0); CALCIUM 7.5 MG/DL (8.5-10.1); CREATININE 0.79 MG/DL (0.50-1.00)
[2017-04-26] MEDS: SODIUM CHLORIDE 0.9% FLUSH 10 ML FLUSH IV FLUSH SCH ×2 (08:51→21:37)
[2017-04-26] MEDS: ACETAMINOPHEN 325 MG TAB PO PRN ×2 (08:54→15:10)
[2017-04-26] MEDS: MORPHINE SULFATE 2 MG/ML INJ IV PUSH PRN ×3 (11:22→22:51)
[2017-04-26 12:00] VITALS: BP 101/58; PULSE 82; RESP 19; TEMP 96.9; O2SAT 96
[2017-04-26] MEDS: SODIUM CHLOR 0.9% 1000 ML INJ 1,000 ML IV SCH ×3 (13:25→21:37)
--- NOTE | 2017-04-26 13:39 | HHI.PR ---
Subjective Remarks Sepsis with large kidney stone. Still with fever 100.2 and with improvement in pain. Some leukocytosis improved. Care plan discussed with patient and significant other at bedside Objective Vitals Vital Signs Date Time Temp Pulse Resp B/P (MAP) Pulse Ox O2 Delivery O2 Flow Rate FiO2 04/26/17 09:54 18 04/26/17 07:44 99.6 84 20 121/56 (77) 95 04/26/17 04:00 100.2 96 18 116/56 (76) 94 04/26/17 00:00 99.6 75 18 126/61 (82) 94 04/25/17 20:00 99.1 78 16 127/65 (85) 97 04/25/17 15:40 100.0 84 16 116/71 (86) 71 I/O 04/25/17 04/25/17 04/25/17 04/26/17 04/26/17 04/26/17 07:00 15:00 23:00 07:00 15:00 23:00 Intake Total 1755 ml 1117 ml 720 ml 120 ml Output Total 400 ml Balance 1355 ml 1117 ml 720 ml 120 ml Intake Oral 442 ml 220 ml 720 ml 120 ml IV Total 1313 ml 897 ml Output Urine Total 400 ml # Voids 6 2 # Bowel Movements 1 0 Result Diagram: 04/26/1772704/26/17727 Objective Remarks GENERAL: This is a well-nourished, well-developed patient, in no apparent distress. CARDIOVASCULAR: Regular rate and rhythm without murmurs, gallops, or rubs. RESPIRATORY: Clear to auscultation. Breath sounds equal bilaterally. No wheezes , rales, or rhonchi. GASTROINTESTINAL: Abdomen soft, non-tender, nondistended. Normal active bowel sounds MUSCULOSKELETAL: Extremities without clubbing, cyanosis, or edema. NEURO: Alert & Oriented x4 to person, place, time, situation. Moves all ext x4 A/P Problem List: (1) Left nephrolithiasis ICD Code: N20.0 - Calculus of kidney Plan: Patient with known history of kidney stones, nonobstructing D/w urology f/u outpatient 1.1 cm stone, follow with urology Continue empiric antibiotics for resolving UTI with sepsis Urine cultures have shown no specific bacteria (2) Pyelonephritis ICD Code: N12 - Tubulo-interstitial nephritis, not specified as acute or chronic Status: Acute Plan: continue IV ABX overnight follow temps likely dc in am (3) Hyperglycemia ICD Code: R73.9 - Hyperglycemia, unspecified Plan: Random blood sugars 188, hemoglobin A1c pending We'll continue to follow repeat blood sugar in a.m. Patient may be prediabetic Hazel Duggan MD Apr 26, 2017 13:39
--- NOTE | 2017-04-26 14:41 | MB ---
cc: JAMAAL MART MD DATE OF CONSULTATION: 04/26/2017 REASON FOR CONSULTATION 1. Left nonobstructing kidney stone. 2. Pyelonephritis. HISTORY OF PRESENT ILLNESS: The patient is a 47 year-old female with a history of kidney stones status post lithotripsy in the past who presented with left-sided flank pain radiating to the lower abdomen, nausea, vomiting and fever of 103 yesterday. In the ER she was found to be febrile with a temperature of 102.7. CT of the abdomen and pelvis without contrast was performed which showed an 11 millimeter stone in the left renal pelvis without hydronephrosis but there was some perinephric stranding. She was admitted for IV antibiotics and urology was consulted. The patient states she has had stones in the past but most recently was 12 years ago when she had lithotripsy. She has never passed a stone in her lifetime. She denies family history of kidney stones as well. Her nausea and vomiting has resolved but she still continues to have left-sided flank pain that is sometimes sharp but intermittent. She denies a dysuria, hematuria, urgency or frequency. REVIEW OF SYSTEMS See HPI. All systems reviewed, otherwise negative. PAST MEDICAL HISTORY: Significant for diverticulitis, nephrolithiasis. PAST SURGICAL HISTORY Lithotripsy. ALLERGIES NO KNOWN DRUG ALLERGIES. ACTIVE MEDICATIONS No current medications. FAMILY HISTORY Denies history of kidney stones or genitourinary disease. SOCIAL HISTORY: Smokes half-pack per day for the last 20 years, denies alcohol, illicit drugs, occasional marijuana use. PHYSICAL EXAMINATION: Vital signs: T max 100.0, T current 99.6, respiratory rate 18, blood pressure 121/56, 99% on room air. General: She is alert and oriented x3. No apparent distress. Pleasant, cooperative lady who appears her stated age. HEAD: Head is normocephalic, atraumatic. Eyes: No scleral icterus. External ocular muscles intact. NECK: Neck is supple. Trachea is midline. No JVD. External nares are normal, external hearing is normal. Lungs: Nonlabored respirations. No wheezes, rales or rhonchi. Heart: Regular rate and rhythm. No murmurs, rubs, or gallops. Abdomen: Soft, non-tender, non-distended. GENITOURINARY: No costovertebral angle tenderness bilaterally. EXTREMITIES: No clubbing, cyanosis or edema. NEUROLOGIC: Cranial nerves II-XII intact. Strength 05/05 all four extremities. PSYCHIATRIC: Appropriate, normal affect. SKIN: No ulcers or rashes. She does have tattoos. LABORATORY DATA: White blood cell count of 1.8, hemoglobin 9.0, hematocrit 26.9, platelet count 254. Sodium 137, potassium 3.6, chloride 107, bicarb 23.9, BUN 7, creatinine 0.79. Urine, moderate leukocyte esterase, small blood culture, currently pending. IMAGING STUDIES: CT of the abdomen and pelvis without contrast, images reviewed, per radiologist's report, the patient has a nonobstructing 11 millimeter stone in the left renal pelvis, and some perinephric stranding. No other kidney stones were seen. ASSESSMENT AND PLAN: The patient is a 47 year old female with a history of kidney stones admitted with left flank pain, nausea, vomiting, fever of 103, diagnosed with an 11 millimeter nonobstructing left kidney stone. PLAN Recommend continuing IV antibiotics until the patient is afebrile for greater than 24 hours and then can switch to p.o. antibiotics and would treat for a total of two weeks. Continue pain control. Since the stone is nonobstructing, no urological intervention needed at this time. She can follow up as outpatient for treatment of the stone with [facility]. Please call if questions. Jamaal Mart MD EMAbdoul/MONICA /1:22 PM /2:12 PM
[2017-04-26 16:00] VITALS: BP 123/66; PULSE 79; RESP 19; TEMP 97.8; O2SAT 96
[2017-04-26 20:14] VITALS: BP 136/73; PULSE 72; RESP 20; TEMP 98.2; O2SAT 93
[2017-04-26] MEDS: TAMSULOSIN HCL 0.4 MG CAP PO SCH (21:36)
[2017-04-27 00:09] VITALS: BP 132/71; PULSE 90; RESP 20; TEMP 99.4; O2SAT 94
[2017-04-27] MEDS: PIPERACIL-TAZO 3.375 GM PREMIX 50 ML IV SCH ×2 (03:17→08:53)
[2017-04-27] MEDS: KETOROLAC TROMETHAMINE 30 MG/ML (IVP) VIAL IV PUSH PRN (04:22)
[2017-04-27] MEDS: SODIUM CHLOR 0.9% 1000 ML INJ 1,000 ML IV SCH (04:26)
[2017-04-27 05:14] LABS: HEMATOCRIT 26.3 % (35.0-46.0); HEMOGLOBIN 8.8 GM/DL (11.6-15.3); MEAN CORPUSCULAR HGB CONC 33.3 % (32.0-36.0); MEAN PLATELET VOLUME 7.5 FL (7.0-11.0); PLATELET COUNT 261 TH/MM3 (150-450); RED BLOOD COUNT 3.02 MIL/MM3 (4.00-5.30); RED CELL DISTRIBUTION WIDTH 14.3 % (11.6-17.2); WHITE BLOOD COUNT 11.9 TH/MM3 (4.0-11.0)
[2017-04-27 05:21] LABS: BICARBONATE 23.2 MEQ/L (21.0-32.0); BLOOD UREA NITROGEN 5 MG/DL (7-18); CALCIUM 7.6 MG/DL (8.5-10.1); CHLORIDE 104 MEQ/L (98-107); CREATININE 0.66 MG/DL (0.50-1.00); GLOMERULAR FILTRATION RATE 96 ML/MIN (>89); GLUCOSE,RANDOM 147 MG/DL (74-106); SODIUM (NA) 135 MEQ/L (136-145)
[2017-04-27 07:56] VITALS: BP 111/57; PULSE 73; RESP 20; TEMP 97.3; O2SAT 95
[2017-04-27] MEDS: SODIUM CHLORIDE 0.9% FLUSH 10 ML FLUSH IV FLUSH SCH (08:53)
--- NOTE | 2017-04-27 11:02 | HHI.DCPOC ---
Discharge Care Plan Diagnosis: (1) Hyperglycemia (2) Pyelonephritis Goals to Promote Your Health * To prevent worsening of your condition and complications * To maintain your health at the optimal level Directions to Meet Your Goals Take your medications as prescribed Follow your dietary instruction Follow activity as directed Keep your appointments as scheduled Take your immunizations and boosters as scheduled If your symptoms worsen call your PCP, if no PCP go to Urgent Care Center or Emergency Room Smoking is Dangerous to Your Health. Avoid second hand smoke Call the 24-hour hour crisis hotline for domestic abuse at Hazel Duggan MD Apr 27, 2017 11:02
[2017-04-27] MEDS ORDERED: BACT800T5 PO (11:03)
--- NOTE | 2017-04-27 11:06 | HHI.DS ---
Discharge Summary Admission Date Apr 24, 2017 at 21:27 Discharge Date: Apr 27, 2017 Admitting Diagnosis Sepsis secondary to pyelonephritis (1) Left nephrolithiasis ICD Code: N20.0 - Calculus of kidney (2) Pyelonephritis ICD Code: N12 - Tubulo-interstitial nephritis, not specified as acute or chronic Status: Acute (3) Hyperglycemia ICD Code: R73.9 - Hyperglycemia, unspecified Procedures none Brief History - From Admission 47-year-old female with a past medical history significant for nephrolithiasis presents with lower abdominal and left-sided flank pain with accompanying nausea and vomiting that started yesterday. She endorses subjective fever/ chills at home and was febrile to 102.7 in the emergency department. CT of the abdomen/pelvis was significant for an 11 mm calculus in the left renal pelvis. UA showed 50 WBCs, moderate leukocyte esterase and small occult blood. Lactic acid initially 2.4, now 3.0. CBC/BMP: 04/27/17 0438 04/27/17 0438 Significant Findings Laboratory Tests Test 04/24/17 17:15 04/24/17 18:37 04/25/17 01:35 04/25/17 05:35 White Blood Count 16.0 TH/MM3 (4.0-11.0) 12.5 TH/MM3 (4.0-11.0) Red Blood Count 3.97 MIL/MM3 (4.00-5.30) 3.19 MIL/MM3 (4.00-5.30) Hemoglobin 11.5 GM/DL (11.6-15.3) 9.2 GM/DL (11.6-15.3) Hematocrit 34.4 % (35.0-46.0) 27.9 % (35.0-46.0) Neutrophils (%) (Auto) 80.3 % (16.0-70.0) Neutrophils # (Auto) 12.8 TH/MM3 (1.8-7.7) 8.6 TH/MM3 (1.8-7.7) Monocytes # (Auto) 1.1 TH/MM3 (0-0.9) 1.3 TH/MM3 (0-0.9) Random Glucose 136 MG/DL (74-106) 188 MG/DL (74-106) Albumin 3.3 GM/DL (3.4-5.0) Sodium Level 135 MEQ/L (136-145) Estimat Glomerular Filtration Rate 70 ML/MIN (>89) 73 ML/MIN (>89) Lactic Acid Level 2.4 mmol/L (0.4-2.0) 3.0 mmol/L (0.4-2.0) Urine Turbidity HAZY (CLEAR) Urine Occult Blood SMALL (NEG) Urine Leukocyte Esterase MOD (NEG) Urine WBC 50 /hpf (0-5) Urine Mucus FEW /lpf (OCC) Monocytes (%) (Auto) 10.7 % (0.0-8.0) Total Protein 6.2 GM/DL (6.4-8.2) Calcium Level 7.3 MG/DL (8.5-10.1) Protein Corrected Calcium 7.8 MG/DL (8.5-10.1) Test 04/26/17 07:28 04/27/17 04:38 Red Blood Count 3.09 MIL/MM3 (4.00-5.30) 3.02 MIL/MM3 (4.00-5.30) Hemoglobin 9.0 GM/DL (11.6-15.3) 8.8 GM/DL (11.6-15.3) Hematocrit 26.9 % (35.0-46.0) 26.3 % (35.0-46.0) Monocytes (%) (Auto) 10.5 % (0.0-8.0) Monocytes # (Auto) 1.1 TH/MM3 (0-0.9) Random Glucose 134 MG/DL (74-106) 147 MG/DL (74-106) Calcium Level 7.5 MG/DL (8.5-10.1) 7.6 MG/DL (8.5-10.1) Estimat Glomerular Filtration Rate 78 ML/MIN (>89) White Blood Count 11.9 TH/MM3 (4.0-11.0) Blood Urea Nitrogen 5 MG/DL (7-18) Sodium Level 135 MEQ/L (136-145) Imaging Last Impressions Abdomen/Pelvis CT 04/24/17 0000 Signed Impressions: Service Date/Time: Monday, April 24, 2017 18:56 - CONCLUSION: 1. 11 mm calculus in the left renal pelvis. No evidence hydronephrosis. 2. Small calcified gallstone. No pericholecystic inflammatory change. Haroldo Buck MD PE at Discharge GENERAL: This is a well-nourished, well-developed patient, in no apparent distress. CARDIOVASCULAR: Regular rate and rhythm without murmurs, gallops, or rubs. RESPIRATORY: Clear to auscultation. Breath sounds equal bilaterally. No wheezes , rales, or rhonchi. GASTROINTESTINAL: Abdomen soft, non-tender, nondistended. Normal active bowel sounds MUSCULOSKELETAL: Extremities without clubbing, cyanosis, or edema. NEURO: Alert & Oriented x4 to person, place, time, situation. Moves all ext x4 Pt update on day of discharge Patient seen today in follow-up for urinary tract infection/pyelonephritis. Sepsis resolved. Patient doing better. Discharge plan discussed with patient. She had a headache Hospital Course Patient is a 47-year-old female with a history of urinary tract infections and kidney stones. She had some concerning symptoms into the emergency room was found to be septic. She was treated for pyelonephritis. Urine cultures were negative however patient was apparently treated with antibiotics. She was seen also by urology due to large renal stones. These are nonobstructing and will be following up in the outpatient setting. Patient also had elevated random blood sugars. Hemoglobin A1c was checked. Patient does not appear to be a diabetic but is likely prediabetic and we'll need to adjust her lifestyle. Pt Condition on Discharge: Good Discharge Disposition: Discharge Home Discharge Time: <= 30 minutes Discharge Instructions New Medications: Sulfamethoxazole-Trimethoprim (Bactrim DS) 800-160 Mg Tab 1 TAB PO BID for Infection, #6 TAB 0 Refills Hazel Duggan MD Apr 27, 2017 11:06
[2017-04-27] MEDS ORDERED: IBUPROFEN 600 MG TAB PO ONE (11:15)
[2017-04-27 11:31] VITALS: BP 114/60; PULSE 80; RESP 20; TEMP 97.8; O2SAT 95
[2017-04-27 16:17] LABS: HEMOGLOBIN A1C 7.1 % (4.3-6.0)
== END 2017-04-27 12:03 | disposition home or self-care (01) | DRG 872 ==
LOC: NEPC 16:35 → NEDA 21:27 → HCIN 22:36 → N07A 04-25 23:17
PROVIDERS: ADMIT Hospitalist; ATTEND Hospitalist
DX: A41.9 Sepsis, unspecified organism (principal); N12 Tubulo-interstitial nephritis, not specified as acute or chronic; N20.0 Calculus of kidney; F17.210 Nicotine dependence, cigarettes, uncomplicated; R73.03 Prediabetes; F32.9 Major depressive disorder, single episode, unspecified; R00.0 Tachycardia, unspecified; Z87.442 Personal history of urinary calculi; Z23 Encounter for immunization; Z87.440 Personal history of urinary (tract) infections
CPT/HCPCS: 74177; 80048; 80053; 81001; 83036; 83605; 83690; 84155; 85025; 85027; 87040; 87086; 87804; 90686; 96361; 96365; 96375; J0696; J1885; J2270; J2405; J2543; J7030; Q2038; Q9967

== ENCOUNTER 2017-05-16 13:50 | Inpatient (IN) | payer BC ==
[~2017-05-16] VITALS: Ht 160 cm; Wt 113.0 kg
[~2017-05-16 13:50] MED LIST changes: +BACT800T5 PO; -CIPR-9 PO; -NORC5TAB PO; -ONDA4TAB7 SL
[2017-05-16 14:10] VITALS: BP 132/92; PULSE 108; RESP 22; TEMP 99; O2SAT 98
--- NOTE | 2017-05-16 14:50 | PD ---
Physical Exam Time Seen by Provider: 14:48 Narrative 47-year-old female complaining of left flank pain since 3 AM this morning. Was discharged from here on April 27 and was told she had a kidney stone. She is currently on her menses and doesn't know if she has blood in her urine. Unknown fevers. Reports vomiting. Patient seen in triage. VS reviewed. Awaiting bed placement. See next providers note for final patient disposition. Data Data Last Documented VS Vital Signs Date Time Temp Pulse Resp B/P (MAP) Pulse Ox O2 Delivery O2 Flow Rate FiO2 05/16/17 14:10 99.0 108 22 132/92 (105) 98 Room Air [facility] Supervised Visit with MARIAH: Ibeth Cm May 16, 2017 14:50
[2017-05-16] MEDS ORDERED: SODIUM CHLORIDE 0.9% FLUSH 10 ML FLUSH IV FLUSH PRN ×3 (15:00→17:00)
--- NOTE | 2017-05-16 15:07 | PD ---
HPI Chief Complaint: Flank/Kidney Pain Time Seen by Provider: 15:06 Travel History International Travel<30 days: No Contact w/Intl Traveler<30days: No Traveled to known affect area: No History of Present Illness HPI 47-year-old female presents the emergency department with worsening left-sided flank pain, nausea, vomiting, and urinary incontinence. Patient has a low-grade fever. Patient was recently hospitalized for presumed pyelonephritis on the left, on 24 April 2017. Patient was treated on an outpatient basis with Bactrim DS twice a day 3 days. She feels that she was improved until yesterday when symptoms seemed to recur. Patient vomited in triage, and had incontinence of urine. Patient's pain is 8 out of 10. Patient does have a history of renal stones in the past. She has no known drug allergies. PFSH Past Medical History Depression: Yes Cancer: No Cardiovascular Problems: No Diverticulitis: Yes Endocrine: No Genitourinary: Yes Kidney Stones: Yes Musculoskeletal: No Neurologic: No Reproductive: No Respiratory: No ?: Not LMP: 05/14/17 : 4 Para: 3 : 1 Tubal Ligation: Yes Past Surgical History Genitourinary Surgery: Yes (kidney stones removed) Gynecologic Surgery: Yes (tubal ligation 1992) Social History Alcohol Use: No Tobacco Use: Yes (/ ppd) Substance Use: Yes (marijuana) Allergies-Medications (Allergen,Severity, Reaction): Coded Allergies: No Known Allergies (Unverified Adverse Reaction, Unknown, 04/24/17) Reported Meds & Prescriptions Reported Meds & Active Scripts Active No Active Prescriptions or Reported Medications Review of Systems Except as stated in HPI: all other systems reviewed are Neg General / Constitutional: Positive: Fever, Chills Eyes: No: Visual changes HENT: No: Headaches Cardiovascular: No: Chest Pain or Discomfort Respiratory: No: Shortness of Breath Gastrointestinal: Positive: Nausea, Vomiting, Abdominal Pain, No: Diarrhea Genitourinary: Positive: Urgency, Frequency, Incontinence, Flank Pain, No: Dysuria Musculoskeletal: No: Pain Skin: No Rash Neurologic: No: Weakness Psychiatric: No: Depression Endocrine: No: Polydipsia Hematologic/Lymphatic: No: Easy Bruising Physical Exam Narrative GENERAL: Patient is in moderate distress. SKIN: Warm and dry. Normal color. Normal turgor. No diaphoresis. HEAD: Atraumatic. Normocephalic. EYES: Pupils equal and round. No scleral icterus. No injection or drainage. ENT: No nasal bleeding or discharge. Mucous membranes pink and moist. Pharynx is clear. Airway is patent. NECK: Trachea midline. Supple and nontender. CARDIOVASCULAR: Regular rate and rhythm. RESPIRATORY: No accessory muscle use. Clear to auscultation. Breath sounds equal bilaterally. GASTROINTESTINAL: Abdomen soft, non-tender, nondistended. Hepatic and splenic margins not palpable. Mild left-sided CVA tenderness. MUSCULOSKELETAL: Extremities without clubbing, cyanosis, or edema. No obvious deformities. NEUROLOGICAL: Awake and alert. No obvious cranial nerve deficits. Motor grossly within normal limits. Five out of 5 muscle strength in the arms and legs. Normal speech. PSYCHIATRIC: Appropriate mood and affect; insight and judgment normal. Data Data Last Documented VS Vital Signs Date Time Temp Pulse Resp B/P (MAP) Pulse Ox O2 Delivery O2 Flow Rate FiO2 05/16/17 15:29 105 17 129/93 (105) 98 Room Air 05/16/17 14:10 99.0 Orders Orders Complete Blood Count With Diff (05/16/17 14:52) Comprehensive Metabolic Panel (05/16/17 14:52) Lipase (05/16/17 14:52) Urinalysis - C+S If Indicated (05/16/17 14:52) Ct Abd/Pel W/O Iv Contrast (05/16/17 14:52) Iv Access Insert/Monitor (05/16/17 14:52) Ecg Monitoring (05/16/17 14:52) Oximetry (05/16/17 14:52) Sodium Chloride 0.9% Flush (Ns Flush) (05/16/17 15:00) Ed Urine Pregnancytest Poc (05/16/17 14:52) Blood Culture (05/16/17 15:14) Lactic Acid (05/16/17 15:14) Ceftriaxone Inj (Rocephin Inj) (05/16/17 15:15) Sodium Chlor 0.9% 1000 Ml Inj (Ns 1000 M (05/16/17 15:14) Sodium Chloride 0.9% Flush (Ns Flush) (05/16/17 15:15) Ketorolac Inj (Toradol Inj) (05/16/17 15:15) Morphine Inj (Morphine Inj) (05/16/17 15:45) Ondansetron Inj (Zofran Inj) (05/16/17 16:15) Sodium Chlor 0.9% 1000 Ml Inj (Ns 1000 M (05/16/17 16:15) Chest, Single Ap (05/16/17 16:28) Labs Laboratory Tests Test 05/16/17 15:30 White Blood Count 22.0 TH/MM3 Red Blood Count 4.25 MIL/MM3 Hemoglobin 12.2 GM/DL Hematocrit 37.0 % Mean Corpuscular Volume 87.0 FL Mean Corpuscular Hemoglobin 28.8 PG Mean Corpuscular Hemoglobin Concent 33.1 % Red Cell Distribution Width 15.0 % Platelet Count 382 TH/MM3 Mean Platelet Volume 7.5 FL Neutrophils (%) (Auto) 82.8 % Lymphocytes (%) (Auto) 9.5 % Monocytes (%) (Auto) 7.3 % Eosinophils (%) (Auto) 0.1 % Basophils (%) (Auto) 0.3 % Neutrophils # (Auto) 18.2 TH/MM3 Lymphocytes # (Auto) 2.1 TH/MM3 Monocytes # (Auto) 1.6 TH/MM3 Eosinophils # (Auto) 0.0 TH/MM3 Basophils # (Auto) 0.1 TH/MM3 CBC Comment DIFF FINAL Differential Comment Blood Urea Nitrogen 16 MG/DL Creatinine 1.47 MG/DL Random Glucose 141 MG/DL Total Protein 8.6 GM/DL Albumin 3.4 GM/DL Calcium Level 8.7 MG/DL Alkaline Phosphatase 78 U/L Aspartate Amino Transf (AST/SGOT) 45 U/L Alanine Aminotransferase (ALT/SGPT) 26 U/L Total Bilirubin 0.5 MG/DL Sodium Level 132 MEQ/L Potassium Level 4.7 MEQ/L Chloride Level 99 MEQ/L Carbon Dioxide Level 22.5 MEQ/L Anion Gap 11 MEQ/L Estimat Glomerular Filtration Rate 38 ML/MIN Lactic Acid Level 3.4 mmol/L Lipase 81 U/L MDM Medical Decision Making Medical Screen Exam Complete: Yes Emergency Medical Condition: Yes Medical Record Reviewed: Yes Differential Diagnosis Renal colic. Pyelonephritis. Hydronephrosis. Nephrolithiasis. Nausea and vomiting. Narrative Course Patient is uncomfortable but medically stable at time of exam. Laboratory CBC, CMP, lipase, blood cultures, lactic acid, and urinalysis. IV access is obtained patient is given 1000 mg Rocephin IV, 30 mg Toradol IV, 2 mg morphine IV, and 4 mg Zofran IV. Patient is given 1000 mL normal saline bolus. CT of the abdomen and pelvis is ordered without contrast. Labs show leukocytosis of 22,000 with 82.8% neutrophils. Chemistry significant for sodium 132, creatinine is 1.47 which is double her previous creatinine of 0.66 on 04/17/17. GFR is estimated at 38. Random glucose is 141. Lactic acid is elevated at 3.4. AST is 45, total protein is 8.6. These findings are discussed with Dr. Medina. CT scan shows: CONCLUSION: 1. No significant change in the central left renal calculus with no definite hydronephrosis. 2. The right kidney is unremarkable. 3. There is a small calcified gallstone. Upon review of the patient's previous inpatient admission, Dr. Kan was consulted on this patient and recommended 2 weeks of outpatient oral antibiotics , and outpatient urology follow-up. It is noted that the patient was discharged with Bactrim DS twice a day for 3 days. Call was placed to Dr. Urena, the urologist on-call and findings were discussed. Patient is noted to have O2 sats just above 90% on room air. Patient states she has no significant chest pain, but has recently got over a cold. Chest x- ray is ordered. Chest x-ray is negative. Call was placed to the hospitalist for admission. Sepsis Criteria SIRS Criteria (2 or more): Heart rate over 90, WBC > 58548, < 4000 or > 10% bands Sepsis Criteria (SIRS+source): Infect source susp/known Severe Sepsis (+one): Lactate >2 Criteria Outcome: Meets SIRS criteria, Meets sepsis criteria, Meets severe sepsis criteria Diagnosis Primary Impression: Sepsis Qualified Codes: A41.9 - Sepsis, unspecified organism Additional Impression: Left nephrolithiasis Admitting Information Admitting Physician Requests: Admit Scripts No Active Prescriptions or Reported Meds Condition: Stable Edward Garcia May 16, 2017 15:07
[2017-05-16] MEDS ORDERED: SODIUM CHLOR 0.9% 1000 ML INJ 1,000 ML IV SCH (15:14)
[2017-05-16] MEDS ORDERED: cefTRIAXone INJ 1,000 MG in SODIUM CHLORIDE 0.9% INJ 100 ML IV ONE (15:15)
[2017-05-16] MEDS ORDERED: KETOROLAC TROMETHAMINE 30 MG/ML (IVP) VIAL IVP ONE (15:15)
[2017-05-16 15:29] VITALS: BP 129/93; PULSE 105; RESP 17; O2SAT 98
[2017-05-16] MEDS ORDERED: MORPHINE SULFATE 2 MG/ML INJ IV PUSH ONE (15:45)
[2017-05-16 15:49] LABS: AUTOMATED NEUTROPHIL # 18.2 TH/MM3 (1.8-7.7); BASOPHIL # 0.1 TH/MM3 (0-0.2); BASOPHIL % 0.3 % (0.0-2.0); EOSINOPHIL % 0.1 % (0.0-4.0); HEMOGLOBIN 12.2 GM/DL (11.6-15.3); LYMPH % 9.5 % (9.0-44.0); LYMPHOCYTE # 2.1 TH/MM3 (1.0-4.8); MEAN CORPUSCULAR HEMOGLOBIN 28.8 PG (27.0-34.0); MEAN CORPUSCULAR HGB CONC 33.1 % (32.0-36.0); MEAN PLATELET VOLUME 7.5 FL (7.0-11.0); MONO % 7.3 % (0.0-8.0); MONOCYTE # 1.6 TH/MM3 (0-0.9); NEUT % 82.8 % (16.0-70.0); PLATELET COUNT 382 TH/MM3 (150-450); RED BLOOD COUNT 4.25 MIL/MM3 (4.00-5.30)
[2017-05-16 16:07] LABS: ALT (GPT) 26 U/L (10-53)
[2017-05-16 16:09] LABS: ALBUMIN 3.4 GM/DL (3.4-5.0); ALKALINE PHOSPHATASE 78 U/L (45-117); AST (GOT) 45 U/L (15-37); BICARBONATE 22.5 MEQ/L (21.0-32.0); BLOOD UREA NITROGEN 16 MG/DL (7-18); CALCIUM 8.7 MG/DL (8.5-10.1); CHLORIDE 99 MEQ/L (98-107); CREATININE 1.47 MG/DL (0.50-1.00); GLOMERULAR FILTRATION RATE 38 ML/MIN (>89); GLUCOSE,RANDOM 141 MG/DL (74-106); LIPASE 81 U/L (73-393); SODIUM (NA) 132 MEQ/L (136-145); TOTAL BILIRUBIN ADULT 0.5 MG/DL (0.2-1.0); TOTAL PROTEIN 8.6 GM/DL (6.4-8.2)
[2017-05-16] MEDS ORDERED: ONDANSETRON HCL 4 MG/2 ML VIAL IV PUSH ONE (16:15)
[2017-05-16] MEDS ORDERED: SODIUM CHLOR 0.9% 1000 ML INJ 1,000 ML IV ONE (16:15)
--- NOTE | 2017-05-16 16:18 | RADRPT ---
EXAM DATE/TIME: 05/16/2017 15:53 [facility] COMPARISON: CT ABDOMEN & PELVIS W/O CONTRAST, January 04, 2017, 17:10. INDICATIONS : Left flank pain today. History of known left renal calculi seen on prior CT ORAL CONTRAST: No oral contrast ingested. RADIATION DOSE: 8.52 CTDIvol (mGy) MEDICAL HISTORY : Renal calculi. SURGICAL HISTORY : Tubal ligation. ENCOUNTER: Initial ACUITY: 1 day PAIN SCALE: 5/10 LOCATION: Left flank TECHNIQUE: Volumetric scanning of the abdomen and pelvis was performed. Using automated exposure control and ad justment of the mA and/or kV according to patient size, radiation dose was kept as low as reasonably achievable to obtain optimal diagnostic quality images. DICOM format image data is available electro nically for review and comparison. FINDINGS: LOWER LUNGS: The visualized lower lungs are clear. LIVER: Homogeneous density without lesion. There is no dilation of the biliary tree. There is a tiny calcif ied gallstone with no gallbladder wall thickening or pericholecystic fluid. SPLEEN: Normal size without lesion. PANCREAS: Within normal limits. KIDNEYS: Normal in size and shape. There is no mass or hydronephrosis. There is a stable appearing 1.6 x 0.7 cm left renal calculus located in the central collecting system. The ureters are unremarkable. ADRENAL GLANDS: Within normal limits. VASCULAR: There is no aortic aneurysm. BOWEL/MESENTERY: The stomach, small bowel, and colon demonstrate no acute abnormality. There is no free intraperitone al air or fluid. There are multiple small calcified phleboliths in the pelvis. ABDOMINAL WALL: Within normal limits. RETROPERITONEUM: There is no lymphadenopathy. BLADDER: No wall thickening or mass. REPRODUCTIVE: Within normal limits. INGUINAL: There is no lymphadenopathy or hernia. MUSCULOSKELETAL: Within normal limits for patient age. CONCLUSION: 1. No significant change in the central left renal calculus with no definite hydronephrosis. 2. The right kidney is unremarkable. 3. There is a small calcified gallstone. Juarez Barker MD on May 16, 2017 at 16:12 Board Certified Radiologist. This report was verified electronically.
--- NOTE | 2017-05-16 16:46 | RADRPT ---
EXAM DATE/TIME: 05/16/2017 16:35 [facility] COMPARISON: No previous studies available for comparison. INDICATIONS : Fever. MEDICAL HISTORY : Renal calculi. SURGICAL HISTORY : Tubal ligation. ENCOUNTER: Initial ACUITY: 3 days PAIN SCORE: 0/10 LOCATION: Bilateral chest FINDINGS: A single view of the chest demonstrates the lungs to be symmetrically aerated without evidence of mas s, infiltrate or effusion. The cardiomediastinal contours are unremarkable. Osseous structures are intact. CONCLUSION: No evidence of acute cardiopulmonary disease. Brian Byrd MD on May 16, 2017 at 16:43 Board Certified Radiologist. This report was verified electronically.
[2017-05-16] MEDS ORDERED: SENNOSIDES 8.6 MG TAB PO PRN (17:00)
[2017-05-16] MEDS ORDERED: LACTULOSE SYRUP 20 GM/30 ML CUP PO PRN (17:00)
[2017-05-16] MEDS ORDERED: NALOXONE HCL 0.4 MG/ML AMP IV PUSH PRN (17:00)
[2017-05-16] MEDS ORDERED: MAGNESIUM HYDROXIDE SUSP 30 ML CUP PO PRN (17:00)
[2017-05-16] MEDS ORDERED: BISACODYL 10 MG SUPP RECTAL PRN (17:00)
--- NOTE | 2017-05-16 17:29 | HHI.HP ---
[facility] Service [place] [facility] Primary Care Physician No Primary Care Physician Admission Diagnosis Sepsis/UTI Diagnoses: Travel History International Travel<30 Days: No Contact w/Intl Traveler <30 Da: No Traveled to Known Affected Are: No History of Present Illness 47-year-old female with a past medical history significant for nephrolithiasis and recurrent urinary tract infections presents to the emergency department for evaluation of left-sided flank pain. The patient initially noticed the pain when it awoke her from sleep at 3 AM. She describes it as a sharp pain in the left flank that radiates to her abdomen. She endorses associated nausea/ vomiting and fever/chills. Vital signs on arrival to the ED: Temperature 90.7, pulse 108, respiratory rate 22, BP 132/92, pulse ox 98% on room air. Laboratory values significant for a lactic acid of 3.4 and a leukocytosis of 22. CT of the abdomen/pelvis shows unchanged left renal calculus without hydronephrosis. UA consistent with urinary tract infection. Review of Systems Positive fever/chills Denies blurry vision, otorrhea, rhinorrhea Denies sore throat and cough No chest pain, palpitations, shortness of breath No abdominal pain Positive right flank pain Denies constipation/diarrhea. Positive nausea/vomiting Denies muscle pain/weakness No rashes Past Family Social History Past Medical History History of nephrolithiasis History of diverticulitis Past Surgical History BTL Stone retrieval Reported Medications Reported Meds & Active Scripts Active No Active Prescriptions or Reported Medications Allergies: Coded Allergies: No Known Allergies (Unverified Adverse Reaction, Unknown, 04/24/17) Family History Denies family history of DM/CAD Social History Smokes a half a pack per day 20 years. Denies alcohol. Occasional marijuana use. Denies all other illicit drugs. Physical Exam Vital Signs Vital Signs Date Time Temp Pulse Resp B/P (MAP) Pulse Ox O2 Delivery O2 Flow Rate FiO2 05/16/17 15:29 105 17 129/93 (105) 98 Room Air 05/16/17 14:10 99.0 108 22 132/92 (105) 98 Room Air Physical Exam GENERAL: Obese, female sitting up in bed SKIN: No rashes, ecchymoses or lesions. Cool and dry. HEAD: Atraumatic. Normocephalic. No temporal or scalp tenderness. EYES: Pupils equal round and reactive. Extraocular motions intact. No scleral icterus. No injection or drainage. ENT: Nose without bleeding, purulent drainage or septal hematoma. Throat without erythema, tonsillar hypertrophy or exudate. Uvula midline. Airway patent. NECK: Trachea midline. No JVD or lymphadenopathy. Supple, nontender, no meningeal signs. CARDIOVASCULAR: Regular rate and rhythm without murmurs, gallops, or rubs. RESPIRATORY: Clear to auscultation. Breath sounds equal bilaterally. No wheezes , rales, or rhonchi. GASTROINTESTINAL: Abdomen soft, non-tender, nondistended. No hepato-splenomegaly , or palpable masses. No guarding. : Left CVA tenderness MUSCULOSKELETAL: Extremities without clubbing, cyanosis, or edema. No joint tenderness, effusion, or edema noted. No calf tenderness. NEUROLOGICAL: Awake and alert. Cranial nerves II through XII intact. Motor and sensory grossly within normal limits. Normal speech. Laboratory Laboratory Tests Test 05/16/17 15:30 White Blood Count 22.0 Red Blood Count 4.25 Hemoglobin 12.2 Hematocrit 37.0 Mean Corpuscular Volume 87.0 Mean Corpuscular Hemoglobin 28.8 Mean Corpuscular Hemoglobin Concent 33.1 Red Cell Distribution Width 15.0 Platelet Count 382 Mean Platelet Volume 7.5 Neutrophils (%) (Auto) 82.8 Lymphocytes (%) (Auto) 9.5 Monocytes (%) (Auto) 7.3 Eosinophils (%) (Auto) 0.1 Basophils (%) (Auto) 0.3 Neutrophils # (Auto) 18.2 Lymphocytes # (Auto) 2.1 Monocytes # (Auto) 1.6 Eosinophils # (Auto) 0.0 Basophils # (Auto) 0.1 CBC Comment DIFF FINAL Differential Comment Blood Urea Nitrogen 16 Creatinine 1.47 Random Glucose 141 Total Protein 8.6 Albumin 3.4 Calcium Level 8.7 Alkaline Phosphatase 78 Aspartate Amino Transf (AST/SGOT) 45 Alanine Aminotransferase (ALT/SGPT) 26 Total Bilirubin 0.5 Sodium Level 132 Potassium Level 4.7 Chloride Level 99 Carbon Dioxide Level 22.5 Anion Gap 11 Estimat Glomerular Filtration Rate 38 Lactic Acid Level 3.4 Lipase 81 Date/Time Source Procedure Growth Status 05/16/17 15:30 Blood Peripheral Aerobic Blood Culture Pending Received 05/16/17 15:30 Blood Peripheral Anaerobic Blood Culture Pending Received Result Diagram: 05/16/17 1530 05/16/17 1530 Caprinparul VTE Risk Assessment Caprini VTE Risk Assessment: No/Low Risk (score <= 1) Caprini Risk Assessment Model Point Value = 1 Point Value = 2 Point Value = 3 Point Value = 5 Age 41-60 Minor surgery BMI > 25 kg/m2 Swollen legs Varicose veins or History of unexplained or recurrent spontaneous Oral contraceptives or hormone replacement Sepsis (< 1 month) Serious lung disease, including pneumonia (< 1 month) Abnormal pulmonary function Acute myocardial infarction Congestive heart failure (< 1 month) History of inflammatory bowel disease Medical patient at bed rest Age 61-74 Arthroscopic surgery Major open surgery (> 45 min) Laparoscopic surgery (> 45 min) Malignancy Confined to bed (> 72 hours) Immobilizing plaster cast Central venous access Age >= 75 History of VTE Family history of VTE Factor V Leiden Prothrombin [id number] Lupus anticoagulant Anticardiolipin antibodies Elevated serum homocysteine Heparin-induced thrombocytopenia Other congenital or acquired thrombophilia Stroke (< 1 month) Elective arthroplasty Hip, pelvis, or leg fracture Acute spinal cord injury (< 1 month) Prophylaxis Regimen Total Risk Factor Score Risk Level Prophylaxis Regimen 0-1 Low Early ambulation 2 Moderate Order ONE of the following: *Sequential Compression Device (SCD) *Heparin 5000 units SQ BID 3-4 Higher Order ONE of the following medications: *Heparin 5000 units SQ TID *Enoxaparin/Lovenox 40 mg SQ daily (WT < 150 kg, CrCl > 30 mL/min) *Enoxaparin/Lovenox 30 mg SQ daily (WT < 150 kg, CrCl > 10-29 mL/min) *Enoxaparin/Lovenox 30 mg SQ BID (WT < 150 kg, CrCl > 30 mL/min) AND/OR *Sequential Compression Device (SCD) 5 or more Highest Order ONE of the following medications: *Heparin 5000 units SQ TID (Preferred with Epidurals) *Enoxaparin/Lovenox 40 mg SQ daily (WT < 150 kg, CrCl > 30 mL/min) *Enoxaparin/Lovenox 30 mg SQ daily (WT < 150 kg, CrCl > 10-29 mL/min) *Enoxaparin/Lovenox 30 mg SQ BID (WT < 150 kg, CrCl > 30 mL/min) AND *Sequential Compression Device (SCD) Assessment and Plan Assessment and Plan Assessment/plan: 1. Urosepsis Leukocytosis, elevated lactic acid, tachycardia Patient with history of UTIs requiring hospitalization, last discharged on 3 day course of Bactrim. Urology recommended 2 week course at that time. UA significant for 50 WBCs, moderate leukocyte esterase Urine, blood cultures pending Rocephin; tailor antibiotics once sensitivities resolved Repeat lactic acid pending IV fluid hydration Monitor for signs of septic shock 2. Nephrolithiasis CT of the abdomen/pelvis shows left renal calculus without hydronephrosis Patient with significant left CVA tenderness and recurrent UTIs Urology consulted, appreciate recommendations 3. GIAN Cr 1.47, baseline 0.66 IVF hydration Monitor renal function FEN Heart healthy diet Electrolytes: monitor and replete prn SCDs Physician Certification 2 Midnight Certification Type: Admission for Inpatient Services Order for Inpatient Services The services are ordered in accordance with Medicare regulations or non- Medicare payer requirements, as applicable. In the case of services not specified as inpatient-only, they are appropriately provided as inpatient services in accordance with the 2-midnight benchmark. Estimated LOS (days): 2 2 days is the estimated time the patient will need to remain in the hospital, assuming treatment plan goals are met and no additional complications. Post-Hospital Plan: Not yet determined Jeannine Aguirre MD May 16, 2017 17:29
[2017-05-16 18:14] LABS: BACTERIA, URINE MOD /hpf; BILIRUBIN, URINE NEG (NEG); BLOOD, URINE LARGE (NEG); GLUCOSE,URINE NEG (NEG); KETONE, URINE NEG (NEG); MUCUS URINE FEW /lpf (OCC); NITRITE,URINE NEG (NEG); PH, URINE 5.5 (5.0-8.5); SQUAMOUS EPITHELIAL CELL URINE 3 /hpf (0-5); URINE COLOR YELLOW (YELLW/STRAW); URINE LEUKOCYTE ESTERASE LARGE (NEG); WHITE BLOOD CELL CLUMPS MANY
[2017-05-16] MEDS: SODIUM CHLOR 0.9% 1000 ML INJ 1,000 ML IV SCH ×2 (18:15→20:34)
[2017-05-16 18:44] LABS: LACTIC ACID SEPSIS PROTOCOL 2.6 mmol/L (0.4-2.0)
[2017-05-16 20:00] VITALS: BP 119/68; PULSE 115; RESP 20; TEMP 100.7; O2SAT 97
[2017-05-16] MEDS: MORPHINE SULFATE 2 MG/ML INJ IV PUSH PRN (20:33)
[2017-05-16] MEDS: ACETAMINOPHEN 325 MG TAB PO PRN (20:33)
[2017-05-16] MEDS: DOCUSATE SODIUM 50 MG/SENNA 8.6 MG TAB PO SCH (20:33)
[2017-05-16] MEDS: SODIUM CHLORIDE 0.9% FLUSH 10 ML FLUSH IV FLUSH SCH (20:38)
[2017-05-16] MEDS: ONDANSETRON HCL 4 MG/2 ML VIAL IVP PRN (20:59)
[2017-05-17] VITALS: BP 124/87; PULSE 95; RESP 18; TEMP 97
[2017-05-17] MEDS: MORPHINE SULFATE 2 MG/ML INJ IV PUSH PRN ×7 (01:19→21:45)
[2017-05-17] MEDS: ONDANSETRON HCL 4 MG/2 ML VIAL IVP PRN ×4 (03:47→21:45)
[2017-05-17] MEDS: SODIUM CHLOR 0.9% 1000 ML INJ 1,000 ML IV SCH ×3 (04:55→23:45)
[2017-05-17 08:14] LABS: AUTOMATED NEUTROPHIL # 20.3 TH/MM3 (1.8-7.7); BASOPHIL % 0.2 % (0.0-2.0); HEMATOCRIT 26.9 % (35.0-46.0); HEMOGLOBIN 9.2 GM/DL (11.6-15.3); LYMPH % 8.1 % (9.0-44.0); MEAN CELL VOLUME 86.1 FL (80.0-100.0); MEAN CORPUSCULAR HEMOGLOBIN 29.4 PG (27.0-34.0); MEAN CORPUSCULAR HGB CONC 34.1 % (32.0-36.0); MEAN PLATELET VOLUME 7.7 FL (7.0-11.0); MONO % 9.3 % (0.0-8.0); MONOCYTE # 2.3 TH/MM3 (0-0.9); NEUT % 82.4 % (16.0-70.0); PLATELET COUNT 272 TH/MM3 (150-450); RED BLOOD COUNT 3.13 MIL/MM3 (4.00-5.30); RED CELL DISTRIBUTION WIDTH 15.1 % (11.6-17.2); WHITE BLOOD COUNT 24.6 TH/MM3 (4.0-11.0)
[2017-05-17] MEDS: SODIUM CHLORIDE 0.9% FLUSH 10 ML FLUSH IV FLUSH SCH ×2 (08:14→21:00)
[2017-05-17] MEDS: DOCUSATE SODIUM 50 MG/SENNA 8.6 MG TAB PO SCH ×2 (08:14→21:44)
[2017-05-17] MEDS: ACETAMINOPHEN 325 MG TAB PO PRN ×3 (08:14→23:45)
[2017-05-17 08:20] VITALS: BP 146/66; PULSE 102; RESP 18; TEMP 101.1; O2SAT 98
[2017-05-17 08:37] LABS: BICARBONATE 21.8 MEQ/L (21.0-32.0); CALCIUM 7.7 MG/DL (8.5-10.1); CREATININE 1.22 MG/DL (0.50-1.00)
--- NOTE | 2017-05-17 10:37 | PD.CONS ---
HPI Service Urology Consult Requested By Dr. Aguirre Reason for Consult Left renal calculus Primary Care Physician No Primary Care Physician Diagnosis: History of Present Illness 47-year-old female with a history of a nonobstructing 11 mm left renal calculus who presented to emergency room with complaints of nausea vomiting fever and left flank pain. Patient had similar symptoms back in April 2017 and was evaluated by . Patient was treated with appropriate antibiotics and released home with instructions to follow up with as an outpatient. During present admission, patient was noted to have a low-grade fever with leukocytosis. A CT scan study was repeated that once again demonstrated the 11 mm nonobstructing mid left renal calculus. There was no evidence of hydronephrosis or mass lesions. At the time of consultation the patient was resting comfortably and not in any acute distress. Review of Systems Constitutional: COMPLAINS OF: Fever, Chills Cardiovascular: DENIES: Chest pain Gastrointestinal: COMPLAINS OF: Nausea, Vomiting, DENIES: Abdominal pain Musculoskeletal: COMPLAINS OF: Back pain (left flank) Except as stated in HPI: all other systems reviewed are Neg Past Family Social History Past Medical History Nephrolithiasis Diverticulitis Past Surgical History Status post lithotripsy Reported Medications Refer to EMR Allergies: Coded Allergies: No Known Allergies (Unverified Adverse Reaction, Unknown, 04/24/17) Active Ordered Medications Refer to EMR Family History Denies family history for nephrolithiasis Social History Smoker one half pack per day 20 years Denies alcohol or intravenous drug abuse history Physical Exam Vital Signs Date Time Temp Pulse Resp B/P (MAP) Pulse Ox O2 Delivery O2 Flow Rate FiO2 05/17/17 08:20 101.1 102 18 146/66 (92) 98 05/17/17 00:00 97.0 95 18 124/87 (99) 05/16/17 20:00 100.7 115 20 119/68 (85) 97 05/16/17 18:46 05/16/17 15:29 105 17 129/93 (105) 98 Room Air 05/16/17 14:10 99.0 108 22 132/92 (105) 98 Room Air Physical Exam GENERAL: This is a well-nourished, well-developed patient, in no apparent distress. SKIN: No rashes, ecchymoses or lesions. Cool and dry. HEAD: Atraumatic. Normocephalic. No temporal or scalp tenderness. EYES: Pupils equal round and reactive. Extraocular motions intact. No scleral icterus. No injection or drainage. ENT: Nose without bleeding, purulent drainage or septal hematoma. Throat without erythema, tonsillar hypertrophy or exudate. Uvula midline. Airway patent. NECK: Trachea midline. No JVD or lymphadenopathy. Supple, nontender, no meningeal signs. CARDIOVASCULAR: Regular rate and rhythm without murmurs, gallops, or rubs. RESPIRATORY: Clear to auscultation. Breath sounds equal bilaterally. No wheezes , rales, or rhonchi. GASTROINTESTINAL: Abdomen soft, non-tender, nondistended. No hepato-splenomegaly , or palpable masses. No guarding. GENITOURINARY: Mild left CVA tenderness MUSCULOSKELETAL: Extremities without clubbing, cyanosis, or edema. No joint tenderness, effusion, or edema noted. No calf tenderness. Negative Homans sign bilaterally. NEUROLOGICAL: Awake and alert. Cranial nerves II through XII intact. Motor and sensory grossly within normal limits. Five out of 5 muscle strength in all muscle groups. Normal speech. Lab results reviewed: Yes Laboratory Tests Test 05/16/17 15:30 05/16/17 17:47 05/16/17 18:16 05/16/17 21:33 White Blood Count 22.0 Red Blood Count 4.25 Hemoglobin 12.2 Hematocrit 37.0 Mean Corpuscular Volume 87.0 Mean Corpuscular Hemoglobin 28.8 Mean Corpuscular Hemoglobin Concent 33.1 Red Cell Distribution Width 15.0 Platelet Count 382 Mean Platelet Volume 7.5 Neutrophils (%) (Auto) 82.8 Lymphocytes (%) (Auto) 9.5 Monocytes (%) (Auto) 7.3 Eosinophils (%) (Auto) 0.1 Basophils (%) (Auto) 0.3 Neutrophils # (Auto) 18.2 Lymphocytes # (Auto) 2.1 Monocytes # (Auto) 1.6 Eosinophils # (Auto) 0.0 Basophils # (Auto) 0.1 CBC Comment DIFF FINAL Differential Comment Blood Urea Nitrogen 16 Creatinine 1.47 Random Glucose 141 Total Protein 8.6 Albumin 3.4 Calcium Level 8.7 Alkaline Phosphatase 78 Aspartate Amino Transf (AST/SGOT) 45 Alanine Aminotransferase (ALT/SGPT) 26 Total Bilirubin 0.5 Sodium Level 132 Potassium Level 4.7 Chloride Level 99 Carbon Dioxide Level 22.5 Anion Gap 11 Estimat Glomerular Filtration Rate 38 Lactic Acid Level 3.4 2.6 2.6 Lipase 81 Urine Color YELLOW Urine Turbidity HAZY Urine pH 5.5 Urine Specific [place] 1.015 Urine Protein 30 Urine Glucose (UA) NEG Urine Ketones NEG Urine Occult Blood LARGE Urine Nitrite NEG Urine Bilirubin NEG Urine Urobilinogen LESS THAN 2.0 Urine Leukocyte Esterase LARGE Urine RBC Urine WBC Urine WBC Clumps MANY Urine Squamous Epithelial Cells 3 Urine Bacteria MOD Urine Mucus FEW Microscopic Urinalysis Comment CULTURE INDICATED Test 05/17/17 06:56 White Blood Count 24.6 Red Blood Count 3.13 Hemoglobin 9.2 Hematocrit 26.9 Mean Corpuscular Volume 86.1 Mean Corpuscular Hemoglobin 29.4 Mean Corpuscular Hemoglobin Concent 34.1 Red Cell Distribution Width 15.1 Platelet Count 272 Mean Platelet Volume 7.7 Neutrophils (%) (Auto) 82.4 Lymphocytes (%) (Auto) 8.1 Monocytes (%) (Auto) 9.3 Eosinophils (%) (Auto) 0.0 Basophils (%) (Auto) 0.2 Neutrophils # (Auto) 20.3 Lymphocytes # (Auto) 2.0 Monocytes # (Auto) 2.3 Eosinophils # (Auto) 0.0 Basophils # (Auto) 0.0 CBC Comment AUTO DIFF Differential Comment AUTO DIFF CONFIRMED Blood Urea Nitrogen 11 Creatinine 1.22 Random Glucose 159 Calcium Level 7.7 Sodium Level 135 Potassium Level 3.6 Chloride Level 104 Carbon Dioxide Level 21.8 Anion Gap 9 Estimat Glomerular Filtration Rate 47 Date/Time Source Procedure Growth Status 05/16/17 15:30 Blood Peripheral Aerobic Blood Culture Pending Resulted 05/16/17 15:30 Anaerobic Blood Culture - Preliminary Gram Negative Gato Resulted 05/16/17 17:47 Urine Random Urine Urine Culture Pending Received Result Diagram: 05/17/17 0656 05/17/17 0656 Personally reviewed images: Yes Imaging Last Impressions Chest X-Ray 05/16/17 1628 Signed Impressions: Service Date/Time: Tuesday, May 16, 2017 16:35 - CONCLUSION: No evidence of acute cardiopulmonary disease. Brian Byrd MD Abdomen/Pelvis CT 05/16/17 1452 Signed Impressions: Service Date/Time: Tuesday, May 16, 2017 15:53 - CONCLUSION: 1. No significant change in the central left renal calculus with no definite hydronephrosis. 2. The right kidney is unremarkable. 3. There is a small calcified gallstone. Juarez Barker MD Assessment and Plan Assessment and Plan Urologic impression: #1 nonobstructing 11 mm left renal pelvis calculus #2 urinary tract infection Recommendations: #1 agree with present antibiotic therapy #2 continue with analgesic support #3 okay to discharge home when medically stable with resolution of the leukocytosis and the fever #4 patient to follow up with her established urologist as previously arranged Salvador Pires MD May 17, 2017 10:37
[2017-05-17 12:24] VITALS: BP_SYST 110; BP_SYST 133; BP_DIAS 56; BP_DIAS 66; PULSE 100; PULSE 99; RESP 18; TEMP 100.2; TEMP 98.2; O2SAT 91; O2SAT 95
[2017-05-17] MEDS ORDERED: cefTRIAXone INJ 1,000 MG in SODIUM CHLORIDE 0.9% INJ 100 ML IV SCH (15:00)
[2017-05-17 16:33] VITALS: BP 147/78; PULSE 114; RESP 20; TEMP 102.5; O2SAT 96
[2017-05-17] MEDS ORDERED: THIAMINE HCL 100 MG TAB PO ONE (19:30)
--- NOTE | 2017-05-17 19:38 | HHI.PR ---
Subjective Remarks Patient seen this afternoon.. She reports that left flank pain continues intermittently, however currently subsided after pain medication.denies any chest pain or shortness of breath Objective Vital Signs Date Time Temp Pulse Resp B/P (MAP) Pulse Ox O2 Delivery O2 Flow Rate FiO2 05/17/17 16:33 102.5 114 20 147/78 (101) 96 05/17/17 12:24 100.2 100 18 110/56 (74) 95 05/17/17 08:20 101.1 102 18 146/66 (92) 98 05/17/17 00:00 97.0 95 18 124/87 (99) 05/16/17 20:00 100.7 115 20 119/68 (85) 97 I/O 05/16/17 05/16/17 05/16/17 05/17/17 05/17/17 05/17/17 07:00 15:00 23:00 07:00 15:00 23:00 Intake Total 350 ml 750 ml 100 ml Balance 350 ml 750 ml 100 ml Intake IV Total 350 ml 750 ml 100 ml # Voids 5 Result Diagram: 05/17/17 0656 05/17/17 0656 Objective Remarks GENERAL: patient sitting up in bed. Appears comfortable. SKIN: Warm and dry. HEAD: Normocephalic. EYES: No scleral icterus. No injection or drainage. NECK: Supple, trachea midline. No JVD. CARDIOVASCULAR: Regular rate and rhythm without murmurs, gallops, or rubs. RESPIRATORY: Breath sounds equal bilaterally. No accessory muscle use. GASTROINTESTINAL: Abdomen soft, non-tender, nondistended. MUSCULOSKELETAL: No cyanosis, or edema. BACK: Nontender without obvious deformity. mild CVA tenderness. A/P Assessment and Plan // sepsis //UTI Leukocytosis, elevated lactic acid, tachycardia Patient with history of UTIs requiring hospitalization, last discharged on 3 day course of Bactrim. Urology recommended 2 week course at that time. UA significant for 50 WBCs, moderate leukocyte esterase Urine, blood cultures pending Rocephin; tailor antibiotics once sensitivities resolved Repeat lactic acid pending IV fluid hydration Monitor for signs of septic shock = Blood pressure continues acceptable, however tachycardia, fever 102.5 today, worsening leukocytosis. Positive blood cultures for Escherichia coli. Repeat blood cultures ordered. Switch antibiotics to Zosyn. Infectious disease consult ordered // Nephrolithiasis CT of the abdomen/pelvis shows left renal calculus without hydronephrosis Patient with significant left CVA tenderness and recurrent UTIs Urology consulted, appreciate recommendations //GIAN Cr 1.47, baseline 0.66 IVF hydration Monitor renal function == Creatinine 1.22. Improved. Continue to monitor. Continue IV fluids. FEN Heart healthy diet Electrolytes: monitor and replete prn SCDs Discharge Planning continue treatment for sepsis. Manny Calles MD May 17, 2017 19:38
[2017-05-17] MEDS ORDERED: SODIUM CHLOR 0.9% 1000 ML INJ 1,000 ML IV ONE (20:00)
[2017-05-17 21:10] VITALS: BP 106/53; PULSE 91; RESP 17; TEMP 99.2; O2SAT 94
[2017-05-17] MEDS: PIPERACIL-TAZO 3.375 GM PREMIX 50 ML IV SCH (21:44)
[2017-05-18] VITALS (7 sets, daily range): BP systolic 108–124; BP diastolic 55–61; PULSE 91–112; RESP 17–20; TEMP 98.2–102; O2SAT 94–95
[2017-05-18] MEDS: PIPERACIL-TAZO 3.375 GM PREMIX 50 ML IV SCH ×3 (03:05→20:22)
[2017-05-18] MEDS: MORPHINE SULFATE 2 MG/ML INJ IV PUSH PRN ×6 (03:06→23:38)
[2017-05-18] MEDS: ONDANSETRON HCL 4 MG/2 ML VIAL IVP PRN ×4 (03:08→23:38)
[2017-05-18] MEDS: SODIUM CHLORIDE 0.9% FLUSH 10 ML FLUSH IV FLUSH SCH ×2 (07:51→20:25)
[2017-05-18] MEDS: THIAMINE HCL 100 MG TAB PO SCH (07:52)
[2017-05-18] MEDS: DOCUSATE SODIUM 50 MG/SENNA 8.6 MG TAB PO SCH ×2 (07:52→20:28)
[2017-05-18] MEDS: SODIUM CHLOR 0.9% 1000 ML INJ 1,000 ML IV SCH (07:53)
--- NOTE | 2017-05-18 09:13 | RADRPT ---
EXAM DATE/TIME: 05/18/2017 08:18 [facility] COMPARISON: CHEST SINGLE AP, May 16, 2017, 16:35. INDICATIONS : Short of breath MEDICAL HISTORY : Renal calculi. SURGICAL HISTORY : Tubal ligation. ENCOUNTER: Subsequent ACUITY: 4 - 6 days PAIN SCORE: 0/10 LOCATION: Bilateral chest FINDINGS: A single view of the chest demonstrates the lungs to be symmetrically aerated without evidence of mas s, infiltrate or effusion. The cardiomediastinal contours are unremarkable. Osseous structures are intact. There is mildly diminished inspiratory effort with mild crowding of the basilar parenchymal m arkings CONCLUSION: No acute disease. No significant change has occurred. Dillon Wan MD on May 18, 2017 at 9:09 Board Certified Radiologist. This report was verified electronically.
[2017-05-18 10:27] LABS: AUTOMATED NEUTROPHIL # 11.7 TH/MM3 (1.8-7.7); BASOPHIL % 0.2 % (0.0-2.0); EOSINOPHIL % 0.2 % (0.0-4.0); HEMATOCRIT 24.8 % (35.0-46.0); HEMOGLOBIN 8.2 GM/DL (11.6-15.3); LYMPH % 12.8 % (9.0-44.0); LYMPHOCYTE # 1.9 TH/MM3 (1.0-4.8); MEAN CELL VOLUME 87.7 FL (80.0-100.0); MEAN CORPUSCULAR HEMOGLOBIN 29.2 PG (27.0-34.0); MEAN CORPUSCULAR HGB CONC 33.3 % (32.0-36.0); MEAN PLATELET VOLUME 7.4 FL (7.0-11.0); MONO % 7.5 % (0.0-8.0); MONOCYTE # 1.1 TH/MM3 (0-0.9); NEUT % 79.3 % (16.0-70.0); PLATELET COUNT 198 TH/MM3 (150-450); RED BLOOD COUNT 2.82 MIL/MM3 (4.00-5.30); RED CELL DISTRIBUTION WIDTH 15.1 % (11.6-17.2); WHITE BLOOD COUNT 14.7 TH/MM3 (4.0-11.0)
[2017-05-18 10:55] LABS: ALBUMIN 2.3 GM/DL (3.4-5.0); BICARBONATE 23.7 MEQ/L (21.0-32.0); CALCIUM 7.7 MG/DL (8.5-10.1); CREATININE 0.85 MG/DL (0.50-1.00); DIRECT BILIRUBIN ADULT 0.1 MG/DL (0.0-0.2); INDIRECT BILIRUBIN 0.2 MG/DL (0.0-0.8); TOTAL BILIRUBIN ADULT 0.3 MG/DL (0.2-1.0); TOTAL PROTEIN 6.6 GM/DL (6.4-8.2)
[2017-05-18] MEDS ORDERED: IOHEXOL 350 MG/ML 10 ML VIAL (for RAD DIAG) IVCONTRAST ONE (11:58)
--- NOTE | 2017-05-18 12:04 | RADRPT ---
EXAM DATE/TIME: 05/18/2017 11:48 [facility] COMPARISON: CHEST SINGLE AP, May 18, 2017, 8:18. INDICATIONS : Shortness of breath, evaluate for embolism. IV CONTRAST: 72 cc Omnipaque 350 (iohexol) IV RADIATION DOSE: 23.11 CTDIvol (mGy) MEDICAL HISTORY : Diverticulitis. Renal calculi. SURGICAL HISTORY : Tubal ligation. ENCOUNTER: Initial ACUITY: 4 - 6 days PAIN SCALE: 0/10 LOCATION: Bilateral chest TECHNIQUE: Volumetric scanning of the chest was performed using a pulmonary embolism protocol MIP images were re constructed. Using automated exposure control and adjustment of the mA and/or kV according to patien t size, radiation dose was kept as low as reasonably achievable to obtain optimal diagnostic quality images. DICOM format image data is available electronically for review and comparison. Follow-up recommendations for detected pulmonary nodules are based at a minimum on nodule size and pa tient risk factors according to Fleischner Society Guidelines. FINDINGS: PULMONARY ARTERIES: No filling defects are seen in the pulmonary arteries through the segmental level. LUNGS: There is a small 2-3 cm area of faint patchy disease infiltrate in the left upper lobe anteriorly. PLEURAE: There is no pleural thickening or pleural effusion. MEDIASTINUM: There is good visualization of the great vessels of the middle mediastinum. No evidence of mediastin al or hilar adenopathy/mass. MUSCULOSKELETAL: Within normal limits for patient age. MISCELLANEOUS: The visualized upper abdominal organs demonstrate no acute abnormality. CONCLUSION: Negative for pulmonary emboli. Small patchy area of airspace disease in infiltrate anterior ly in the left upper lobe Dillon Wan MD on May 18, 2017 at 11:58 Board Certified Radiologist. This report was verified electronically.
--- NOTE | 2017-05-18 14:43 | MB ---
cc: EDILIA WING MD DATE OF CONSULTATION: 05/18/[address] Calles REASON FOR CONSULTATION: Gram-negative bacteremia. HISTORY OF PRESENT ILLNESS This is a 47-year-old white female who presented to the emergency department with left-sided flank pain, nausea, vomiting and fever. This is the second hospital presentation for the same problem. The patient was recently admitted April 24 and discharged on April 27. She was diagnosed with pyelonephritis at that time. 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 and she took a Advil and the pain went away. The pain recurred and she was having and nausea and vomiting and subsequently had the pain became very severe and she presented to the emergency department for evaluation. The temperature esther to 102.5 degrees and the white blood cell count was elevated at 22,000. The urine cultures and blood cultures were taken. One bottle from the blood culture has E-coli. The urine culture showed mixed bacteria. Her temperature esther again early this morning to 102 degrees. She is currently on intravenous antibiotics. OTHER MEDICAL HISTORY: The patient was seen in the hospital in April and was treated with antibiotics for pyelonephritis. The urine culture also showed mixed bacteria at that time and blood cultures were negative. She was discharged home with three days of Bactrim. She states that she felt better after she finished the antibiotic. She was noted to have a 11 mm renal stone on the left. There was no hydronephrosis noted. Currently the patient feels fatigued. PAST MEDICAL HISTORY 1. Tubal ligation. 2. Kidney stone resection. ALLERGIES NO KNOWN DRUG ALLERGIES. MEDICATIONS 1. Piperacillin / tazobactam. 2. Morphine sulfate. 3. Zofran. 4. Thiamine. SOCIAL HISTORY The patient smoked a pack of cigarettes a day up until April 2017, after that she has cut down to a few cigarettes a day. She denies alcohol use. Positive marijuana use. 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 FAMILY HISTORY Noncontributory. REVIEW OF SYSTEMS Pertinent positives mentioned above in history of present illness. PHYSICAL EXAMINATION: IN GENERAL: This is a morbidly obese female who is awake, looks chronically ill. She is in no acute distress. VITAL SIGNS: Temperature 98.2, Blood pressure 123/50, respirations 18, heart rate 95. HEAD, EYES, EARS, NOSE, AND THROAT: Head atraumatic. Extraocular movements are grossly intact, pupils are reactive to light. No icterus. Oropharynx moist mucosa without lesions. NECK: Supple without adenopathy. LUNGS: Clear breath sounds. HEART: Regular S1, S2, without murmurs, rubs or gallops. ABDOMEN: Bowel sounds present, obese, soft, tenderness at the left flank. RECTAL: Not performed. EXTREMITIES: No clubbing, cyanosis or edema. SKIN: No rash. NEUROLOGIC: No gross focal findings. PSYCHIATRIC: The patient calm and cooperative. LABORATORY DATA WBC 14.7, platelet count 198, hemoglobin 8.2, 79% neutrophils, creatinine 0.85, BUN 7, sodium 135. Urinalysis revealed many white blood cell clumps and a large amount of leukocyte esterase. IMPRESSION 1. Acute pyelonephritis due to E-coli. 2. Persistent fever and leukocytosis. RECOMMENDATIONS 1. Continue piperacillin/Tazobactam 2. Monitor the blood cultures for sensitivity of the E-coli. 3. Monitor repeated blood culture. 4. Follow white blood cell count and temperature. 5. Adjustment to antibiotics will be made pending culture results and clinical response to antibiotic treatment. Thank you for this consultation. Edilia Wing MD FD/yisel /10:59 AM /11:24 AM BRANDI
--- NOTE | 2017-05-18 15:20 | HHI.PR ---
Subjective Remarks Patient seen today around 2 PM. She reports feeling slightly short of breath today. Denies any chest pain. She reports that shortness of breath has improved throughout the day. She reports that left lower quadrant abdominal pain appears to be improving. She does report intermittent nausea without vomiting, reports this is a side effect of Zosyn that she has had in the past, says that Zofran helps. Objective Vital Signs Date Time Temp Pulse Resp B/P (MAP) Pulse Ox O2 Delivery O2 Flow Rate FiO2 05/18/17 12:09 99.3 91 18 116/58 (77) 94 05/18/17 07:30 98.2 95 18 123/58 (79) 94 05/18/17 05:27 98.5 92 18 113/57 (75) 95 05/18/17 00:41 102.0 112 19 116/59 (78) 94 05/17/17 21:10 99.2 91 17 106/53 (70) 94 05/17/17 16:33 102.5 114 20 147/78 (101) 96 I/O 05/17/17 05/17/17 05/17/17 05/18/17 05/18/17 05/18/17 06:59 14:59 22:59 06:59 14:59 22:59 Intake Total 100 ml 1000 ml 630 ml 1655 ml 377 ml Balance 100 ml 1000 ml 630 ml 1655 ml 377 ml Intake Oral 480 ml IV Total 100 ml 1000 ml 150 ml 1655 ml 377 ml # Voids 5 3 Result Diagram: 05/18/17 0956 05/18/17 0956 Objective Remarks GENERAL: patient sitting up in bed. Appears comfortable. Alert and oriented 3. SKIN: Warm and dry. HEAD: Normocephalic. EYES: No scleral icterus. No injection or drainage. NECK: Supple, trachea midline. No JVD. CARDIOVASCULAR: Regular rate and rhythm without murmurs, gallops, or rubs. RESPIRATORY: Breath sounds equal bilaterally. No accessory muscle use. GASTROINTESTINAL: Abdomen soft, non-tender, nondistended. MUSCULOSKELETAL: No cyanosis, or edema. BACK: Nontender without obvious deformity. mild CVA tenderness. A/P Assessment and Plan // Severe sepsis on admission //UTI Leukocytosis, elevated lactic acid, tachycardia Patient with history of UTIs requiring hospitalization, last discharged on 3 day course of Bactrim. Urology recommended 2 week course at that time. UA significant for 50 WBCs, moderate leukocyte esterase Urine, blood cultures pending Rocephin; tailor antibiotics once sensitivities resolved Repeat lactic acid pending IV fluid hydration Monitor for signs of septic shock = Blood pressure continues acceptable, however tachycardia, fever 102.5 today, worsening leukocytosis. Positive blood cultures for Escherichia coli. Repeat blood cultures ordered. Switch antibiotics to Zosyn. Infectious disease consult ordered = Lactate 1.0 today. Follow-up infectious disease recommendations. Continue IV Zosyn. Follow up blood cultures sensitivities. Repeat blood culture 05/18 negative so far. // Nephrolithiasis CT of the abdomen/pelvis shows left renal calculus without hydronephrosis Patient with significant left CVA tenderness and recurrent UTIs Urology consulted, appreciate recommendations. No need for emergent procedures. //GIAN Cr 1.47, baseline 0.66 IVF hydration Monitor renal function == Creatinine 1.22. Improved. Continue to monitor. Continue IV fluids. = 05/18 creatinine 0.85. Much improved. //Shortness of breath //Hypoxemic respiratory failure Patient in the low 80s on room air this morning. D-dimer 1.7. CT pulmonary angiogram negative for pulmonary embolism, however does show some left upper lobe infiltrate. Continue IV Zosyn. Recently visualized, appears to be dependent atelectasis secondary to abdominal distention. We'll order incentive spirometry and Acapella. Started on duo nebs. Continue on IV Zosyn. Consult pulmonology. FEN Heart healthy diet Electrolytes: monitor and replete prn SCDs Discharge Planning continue treatment for sepsis. Pending pulmonology and infectious disease consultations. Pending culture sensitivities. Manny Calles MD May 18, 2017 15:20
[2017-05-18] MEDS: RESP: ALBUTEROL 2.5 MG/IPRATROPIUM 0.5 MG NEB (SCH) NEB ×2 (15:29→22:21)
[2017-05-18] MEDS ORDERED: DOCUSATE SODIUM 50 MG/SENNA 8.6 MG TAB PO ONE (15:30)
[2017-05-18] MEDS ORDERED: MAGNESIUM HYDROXIDE SUSP 30 ML CUP PO ONE (15:30)
[2017-05-18] MEDS: ACETAMINOPHEN 325 MG TAB PO PRN (16:55)
[2017-05-18] MEDS: HEPARIN SODIUM - SQ 10,000 UNITS/ML VIAL SQ SCH (20:24)
[2017-05-19] VITALS (7 sets, daily range): BP systolic 104–143; BP diastolic 55–79; PULSE 83–100; RESP 18–20; TEMP 98.3–99.4; O2SAT 91–100
[2017-05-19] MEDS: MORPHINE SULFATE 2 MG/ML INJ IV PUSH PRN ×4 (03:15→21:49)
[2017-05-19] MEDS: RESP: ALBUTEROL 2.5 MG/IPRATROPIUM 0.5 MG NEB (SCH) NEB ×4 (03:20→19:47)
[2017-05-19] MEDS: PIPERACIL-TAZO 3.375 GM PREMIX 50 ML IV SCH ×3 (04:45→21:49)
[2017-05-19] MEDS: ONDANSETRON HCL 4 MG/2 ML VIAL IVP PRN ×2 (06:22→14:39)
[2017-05-19] MEDS: DOCUSATE SODIUM 50 MG/SENNA 8.6 MG TAB PO SCH ×2 (08:47→21:00)
[2017-05-19] MEDS: HEPARIN SODIUM - SQ 10,000 UNITS/ML VIAL SQ SCH ×2 (08:47→21:50)
[2017-05-19] MEDS: THIAMINE HCL 100 MG TAB PO SCH (08:47)
[2017-05-19] MEDS: SODIUM CHLORIDE 0.9% FLUSH 10 ML FLUSH IV FLUSH SCH ×2 (08:48→21:50)
--- NOTE | 2017-05-19 12:40 | HHI.PR ---
Subjective Remarks Patient seen this morning around 11 AM. Says she is feeling better overall. She does report or sleep in the hospital. she says that shortness of breath has resolved however continues to be 87% saturation on room air.. Objective Vital Signs Date Time Temp Pulse Resp B/P (MAP) Pulse Ox O2 Delivery O2 Flow Rate FiO2 05/19/17 12:15 3.00 05/19/17 09:19 93 Nasal Cannula 4.00 05/19/17 09:05 99.0 87 20 119/56 (77) 91 05/19/17 01:09 98.3 100 19 143/79 (100) 100 05/19/17 00:00 98 Room Air 05/18/17 22:31 95 05/18/17 20:51 98.5 91 17 108/55 (72) 95 05/18/17 15:57 100.7 96 20 124/61 (82) 94 I/O 05/18/17 05/18/17 05/18/17 05/19/17 05/19/17 05/19/17 07:00 15:00 23:00 07:00 15:00 23:00 Intake Total 1655 ml 977 ml 50 ml 50 ml Balance 1655 ml 977 ml 50 ml 50 ml Intake Oral 600 ml IV Total 1655 ml 377 ml 50 ml 50 ml Result Diagram: 05/18/1795505/18/17955 Objective Remarks GENERAL: patient sitting up in bed. Appears comfortable. Alert and oriented 3. no change on exam SKIN: Warm and dry. HEAD: Normocephalic. EYES: No scleral icterus. No injection or drainage. NECK: Supple, trachea midline. No JVD. CARDIOVASCULAR: Regular rate and rhythm without murmurs, gallops, or rubs. RESPIRATORY: Breath sounds equal bilaterally. No accessory muscle use. GASTROINTESTINAL: Abdomen soft, non-tender, nondistended. MUSCULOSKELETAL: No cyanosis, or edema. BACK: Nontender without obvious deformity. mild CVA tenderness. A/P Assessment and Plan // Severe sepsis on admission //UTI Leukocytosis, elevated lactic acid, tachycardia Patient with history of UTIs requiring hospitalization, last discharged on 3 day course of Bactrim. Urology recommended 2 week course at that time. UA significant for 50 WBCs, moderate leukocyte esterase Urine, blood cultures pending Rocephin; tailor antibiotics once sensitivities resolved Repeat lactic acid pending IV fluid hydration Monitor for signs of septic shock = Blood pressure continues acceptable, however tachycardia, fever 102.5 today, worsening leukocytosis. Positive blood cultures for Escherichia coli. Repeat blood cultures ordered. Switch antibiotics to Zosyn. Infectious disease consult ordered = Lactate 1.0 today. Follow-up infectious disease recommendations. Continue IV Zosyn. Follow up blood cultures sensitivities. Repeat blood culture 05/18 negative so far. = 05/19. Follow-up Escherichia coli sensitivities. Infectious disease following. Continue antibiotics. // Nephrolithiasis CT of the abdomen/pelvis shows left renal calculus without hydronephrosis Patient with significant left CVA tenderness and recurrent UTIs Urology consulted, appreciate recommendations. No need for emergent procedures. //GIAN Cr 1.47, baseline 0.66 IVF hydration Monitor renal function == Creatinine 1.22. Improved. Continue to monitor. Continue IV fluids. = 05/18 creatinine 0.85. Much improved. = Resolved //Shortness of breath //Hypoxemic respiratory failure Patient in the low 80s on room air this morning. D-dimer 1.7. CT pulmonary angiogram negative for pulmonary embolism, however does show some left upper lobe infiltrate. Continue IV Zosyn. Recently visualized, appears to be dependent atelectasis secondary to abdominal distention. We'll order incentive spirometry and Acapella. Started on duo nebs. Continue on IV Zosyn. Consult pulmonology. = 05/19. This appears to be much improved, however patient still hypoxic. Pulmonology consultation pending. //Anemia. 11 yesterday 8.2 from 9.2, from 12.2 on admission. =Likely secondary to dilution from IV fluids. = No Signs of bleeding =Follow up CBC today. Discharge Planning continue treatment for sepsis. Pending pulmonology and infectious disease consultations. Pending culture sensitivities. Manny Calles MD May 19, 2017 12:40
--- NOTE | 2017-05-19 12:42 | HHI.IDPN ---
Note Infectious Disease Note Patient notes nausea. Still has flank pain on the left. (+) chills. Low grade fever. Presented to the emergency department with left-sided flank pain, nausea, vomiting and fever. This is the second hospital presentation for the same problem. The patient was recently admitted April 24 and discharged on April 27. She was diagnosed with pyelonephritis at that time. She was discharged home with three days of Bactrim. PAST MEDICAL HISTORY 1. Tubal ligation. 2. Kidney stone resection. ALLERGIES NO KNOWN DRUG ALLERGIES. ANTIBIOTICS: Piperacillin / tazobactam. OBJECTIVE: Vital Signs Date Time Temp Pulse Resp B/P (MAP) Pulse Ox O2 Delivery O2 Flow Rate FiO2 05/19/17 12:28 99.4 92 20 104/55 (71) 92 05/19/17 12:15 3.00 05/19/17 09:19 93 Nasal Cannula 4.00 05/19/17 09:05 99.0 87 20 119/56 (77) 91 05/19/17 01:09 98.3 100 19 143/79 (100) 100 05/19/17 00:00 98 Room Air 05/18/17 22:31 95 05/18/17 20:51 98.5 91 17 108/55 (72) 95 05/18/17 15:57 100.7 96 20 124/61 (82) 94 Laboratory Tests Test 05/18/17 09:56 White Blood Count 14.7 TH/MM3 Red Blood Count 2.82 MIL/MM3 Hemoglobin 8.2 GM/DL Hematocrit 24.8 % Mean Corpuscular Volume 87.7 FL Mean Corpuscular Hemoglobin 29.2 PG Mean Corpuscular Hemoglobin Concent 33.3 % Red Cell Distribution Width 15.1 % Platelet Count 198 TH/MM3 Mean Platelet Volume 7.4 FL Neutrophils (%) (Auto) 79.3 % Lymphocytes (%) (Auto) 12.8 % Monocytes (%) (Auto) 7.5 % Eosinophils (%) (Auto) 0.2 % Basophils (%) (Auto) 0.2 % Neutrophils # (Auto) 11.7 TH/MM3 Lymphocytes # (Auto) 1.9 TH/MM3 Monocytes # (Auto) 1.1 TH/MM3 Eosinophils # (Auto) 0.0 TH/MM3 Basophils # (Auto) 0.0 TH/MM3 CBC Comment DIFF FINAL Differential Comment Laboratory Tests Test 05/18/17 09:56 Blood Urea Nitrogen 7 MG/DL Creatinine 0.85 MG/DL Random Glucose 156 MG/DL Total Protein 6.6 GM/DL Albumin 2.3 GM/DL Calcium Level 7.7 MG/DL Phosphorus Level 2.0 MG/DL Magnesium Level 2.0 MG/DL Alkaline Phosphatase 62 U/L Aspartate Amino Transf (AST/SGOT) 11 U/L Alanine Aminotransferase (ALT/SGPT) 13 U/L Total Bilirubin 0.3 MG/DL Direct Bilirubin 0.1 MG/DL Sodium Level 135 MEQ/L Potassium Level 3.5 MEQ/L Chloride Level 105 MEQ/L Carbon Dioxide Level 23.7 MEQ/L Anion Gap 6 MEQ/L Estimat Glomerular Filtration Rate 72 ML/MIN Lactic Acid Level 1.0 mmol/L Indirect Bilirubin 0.2 MG/DL Human Chorionic Gonadotropin, Quant LESS THAN 1 MIU/ML Microbiology Date/Time Source Procedure Growth Status 05/18/17 09:56 Blood Peripheral Aerobic Blood Culture - Preliminary NO GROWTH IN 1 DAY Resulted 05/18/17 09:56 Blood Peripheral Anaerobic Blood Culture - Preliminary NO GROWTH IN 1 DAY Resulted 05/18/17 08:50 Blood Peripheral Aerobic Blood Culture - Preliminary NO GROWTH IN 1 DAY Resulted 05/18/17 08:50 Blood Peripheral Anaerobic Blood Culture - Preliminary NO GROWTH IN 1 DAY Resulted 05/16/17 15:30 Blood Peripheral Aerobic Blood Culture - Preliminary NO GROWTH IN 3 DAYS Resulted 05/16/17 15:30 Anaerobic Blood Culture - Preliminary Escherichia Coli Resulted 05/16/17 15:30 Blood Peripheral Aerobic Blood Culture - Preliminary NO GROWTH IN 3 DAYS Resulted 05/16/17 15:30 Blood Peripheral Anaerobic Blood Culture - Preliminary NO GROWTH IN 3 DAYS Resulted 05/16/17 17:47 Urine Random Urine Urine Culture - Final 10-50,000 CFU/ML MIXED CHET... Complete PHYSICAL EXAMINATION: IN GENERAL: No acute distress. Looks lethargic. HEAD, EYES, EARS, NOSE, AND THROAT: Head atraumatic. Extraocular movements are grossly intact, pupils are reactive to light. No icterus. Oropharynx moist mucosa without lesions. NECK: Supple without adenopathy. LUNGS: Clear breath sounds. HEART: Regular S1, S2, without murmurs, rubs or gallops. ABDOMEN: Bowel sounds present, obese, soft, tenderness at the left flank. EXTREMITIES: No clubbing, cyanosis or edema. SKIN: No rash. NEUROLOGIC: No gross focal findings. PSYCHIATRIC: Calm and cooperative. IMPRESSION 1. Acute pyelonephritis due to E-coli. 2. Persistent fever and leukocytosis. RECOMMENDATIONS 1. Continue piperacillin/Tazobactam 2. Monitor the blood cultures for sensitivity of the E-coli. 3. Monitor repeated blood culture. 4. Follow white blood cell count and temperature. Alexi Hodge MD May 19, 2017 12:42
[2017-05-19 15:28] LABS: AUTOMATED NEUTROPHIL # 6.5 TH/MM3 (1.8-7.7); BASOPHIL % 0.3 % (0.0-2.0); EOSINOPHIL # 0.1 TH/MM3 (0-0.4); HEMATOCRIT 23.7 % (35.0-46.0); HEMOGLOBIN 8.1 GM/DL (11.6-15.3); LYMPH % 21.2 % (9.0-44.0); LYMPHOCYTE # 2.1 TH/MM3 (1.0-4.8); MEAN CELL VOLUME 85.4 FL (80.0-100.0); MEAN CORPUSCULAR HEMOGLOBIN 29.3 PG (27.0-34.0); MEAN CORPUSCULAR HGB CONC 34.3 % (32.0-36.0); MEAN PLATELET VOLUME 7.4 FL (7.0-11.0); MONO % 11.5 % (0.0-8.0); MONOCYTE # 1.1 TH/MM3 (0-0.9); PLATELET COUNT 231 TH/MM3 (150-450); RED BLOOD COUNT 2.78 MIL/MM3 (4.00-5.30); RED CELL DISTRIBUTION WIDTH 14.9 % (11.6-17.2); WHITE BLOOD COUNT 9.9 TH/MM3 (4.0-11.0)
[2017-05-19 15:44] LABS: BICARBONATE 28.1 MEQ/L (21.0-32.0); CALCIUM 7.8 MG/DL (8.5-10.1); CREATININE 0.71 MG/DL (0.50-1.00)
[2017-05-19 15:59] LABS: % SATURATION IRON PROFILE 4.8 % (20-50); IRON (FE) 15 MCG/DL (50-170); TOTAL IRON BINDING CAPACITY 314 MCG/DL (250-450)
[2017-05-19 16:02] LABS: FERRITIN 84 NG/ML (8-252)
[2017-05-20 00:21] VITALS: BP 127/65; PULSE 70; RESP 17; TEMP 98.1; O2SAT 94
[2017-05-20] MEDS: PIPERACIL-TAZO 3.375 GM PREMIX 50 ML IV SCH ×2 (04:39→12:37)
[2017-05-20] MEDS: MORPHINE SULFATE 2 MG/ML INJ IV PUSH PRN ×2 (04:39→09:06)
[2017-05-20] MEDS: RESP: ALBUTEROL 2.5 MG/IPRATROPIUM 0.5 MG NEB (SCH) NEB ×2 (05:01→10:00)
[2017-05-20 05:30] VITALS: BP 130/61; PULSE 79; RESP 17; TEMP 97.7; O2SAT 96
[2017-05-20 08:00] VITALS: BP 103/55; PULSE 81; RESP 19; TEMP 98.3; O2SAT 96
[2017-05-20] MEDS: SODIUM CHLORIDE 0.9% FLUSH 10 ML FLUSH IV FLUSH SCH (09:00)
[2017-05-20] MEDS: DOCUSATE SODIUM 50 MG/SENNA 8.6 MG TAB PO SCH (09:00)
[2017-05-20] MEDS: THIAMINE HCL 100 MG TAB PO SCH (09:03)
[2017-05-20] MEDS: HEPARIN SODIUM - SQ 10,000 UNITS/ML VIAL SQ SCH (09:04)
[2017-05-20] MEDS ORDERED: LEVA750T9 PO (10:02)
[2017-05-20] MEDS ORDERED: VENTAER INH (10:02)
[2017-05-20] MEDS ORDERED: FERR325T18 PO (10:09)
[2017-05-20] MEDS ORDERED: MIRA3350 PO (10:09)
--- NOTE | 2017-05-20 10:15 | HHI.PR ---
Subjective Remarks Patient says she feels much better. Denies any chest pain or shortness breath. Denies any nausea or vomiting. Positive bowel movement. Reports abdominal discomfort has nearly resolved. Objective Vital Signs Date Time Temp Pulse Resp B/P (MAP) Pulse Ox O2 Delivery O2 Flow Rate FiO2 05/20/17 09:00 Nasal Cannula 2.00 05/20/17 05:30 97.7 79 17 130/61 (84) 96 05/20/17 00:21 98.1 70 17 127/65 (85) 94 05/20/17 00:20 Nasal Cannula 2.00 05/19/17 20:30 98.4 99 18 135/62 (86) 94 05/19/17 19:48 94 21 05/19/17 15:49 99.0 83 20 135/66 (89) 96 05/19/17 14:04 3.00 05/19/17 12:28 99.4 92 20 104/55 (71) 92 05/19/17 12:15 3.00 I/O 05/19/17 05/19/17 05/19/17 05/20/17 05/20/17 05/20/17 07:00 15:00 23:00 07:00 15:00 23:00 Intake Total 50 ml 650 ml 360 ml Balance 50 ml 650 ml 360 ml Intake Oral 600 ml 360 ml IV Total 50 ml 50 ml # Voids 4 4 # Bowel Movements 1 Result Diagram: 05/19/17 1457 05/19/17 1457 Objective Remarks GENERAL: patient sitting up in bed. Appears comfortable. Alert and oriented 3. SKIN: Warm and dry. HEAD: Normocephalic. EYES: No scleral icterus. No injection or drainage. NECK: Supple, trachea midline. No JVD. CARDIOVASCULAR: Regular rate and rhythm without murmurs, gallops, or rubs. RESPIRATORY: Breath sounds equal bilaterally. No accessory muscle use. GASTROINTESTINAL: Abdomen soft, non-tender, nondistended. MUSCULOSKELETAL: No cyanosis, or edema. BACK: Nontender without obvious deformity. mild CVA tenderness. A/P Assessment and Plan // Severe sepsis on admission //UTI Leukocytosis, elevated lactic acid, tachycardia Patient with history of UTIs requiring hospitalization, last discharged on 3 day course of Bactrim. Urology recommended 2 week course at that time. UA significant for 50 WBCs, moderate leukocyte esterase Urine, blood cultures pending Rocephin; tailor antibiotics once sensitivities resolved Repeat lactic acid pending IV fluid hydration Monitor for signs of septic shock = Blood pressure continues acceptable, however tachycardia, fever 102.5 today, worsening leukocytosis. Positive blood cultures for Escherichia coli. Repeat blood cultures ordered. Switch antibiotics to Zosyn. Infectious disease consult ordered = Lactate 1.0 today. Follow-up infectious disease recommendations. Continue IV Zosyn. Follow up blood cultures sensitivities. Repeat blood culture 05/18 negative so far. = 05/19. Follow-up Escherichia coli sensitivities. Infectious disease following. Continue antibiotics. = Once is 18. Escherichia coli sensitive to Levaquin. Discharge home on Levaquin 10 day course complete treatment. Follow-up with urology and primary care. Patient conveys understanding. // Nephrolithiasis CT of the abdomen/pelvis shows left renal calculus without hydronephrosis Patient with significant left CVA tenderness and recurrent UTIs Urology consulted, appreciate recommendations. No need for emergent procedures. = Follow-up urology as outpatient. Patient conveys understanding. //GIAN Cr 1.47, baseline 0.66 IVF hydration Monitor renal function == Creatinine 1.22. Improved. Continue to monitor. Continue IV fluids. = 05/18 creatinine 0.85. Much improved. = Resolved //Shortness of breath. Resolved. //Hypoxemic respiratory failure. Resolved. Patient in the low 80s on room air this morning. D-dimer 1.7. CT pulmonary angiogram negative for pulmonary embolism, however does show some left upper lobe infiltrate. Continue IV Zosyn. Recently visualized, appears to be dependent atelectasis secondary to abdominal distention. We'll order incentive spirometry and Acapella. Started on duo nebs. Continue on IV Zosyn. Consult pulmonology. = 05/19. This appears to be much improved, however patient still hypoxic. Pulmonology consultation pending. = 05/20. Patient 98% on room air this morning. This is likely secondary to atelectasis, exacerbated by narcotics and extended bedrest. Discharge patient home with albuterol as needed for shortness of breath. Follow-up with pulmonology as outpatient. //Anemia. 11 yesterday 8.2 from 9.2, from 12.2 on admission. =Likely secondary to dilution from IV fluids. = No Signs of bleeding =Follow up CBC today. = 05/20. Patient reports chronic history of anemia. She does report heavier menstrual periods for the past 6 months. We'll discharge home on iron supplementation. She agrees to follow up with primary care, obtain appropriate workup. Discharge Planning Discharge home on Levaquin to complete treatment course. Follow-up with urology , pulmonology as outpatient. Manny Calles MD May 20, 2017 10:15
--- NOTE | 2017-05-20 10:20 | HHI.DS ---
Discharge Summary Admission Date May 16, 2017 at 16:54 Discharge Date: May 20, 2017 Admitting Diagnosis Sepsis/UTI (1) Gram-negative bacteremia ICD Code: R78.81 - Bacteremia (2) Left nephrolithiasis ICD Code: N20.0 - Calculus of kidney (3) Sepsis ICD Code: A41.9 - Sepsis, unspecified organism Status: Acute Procedures No Invasive procedures Brief History - From Admission 47-year-old female with a past medical history significant for nephrolithiasis and recurrent urinary tract infections presents to the emergency department for evaluation of left-sided flank pain. The patient initially noticed the pain when it awoke her from sleep at 3 AM. She describes it as a sharp pain in the left flank that radiates to her abdomen. She endorses associated nausea/ vomiting and fever/chills. Vital signs on arrival to the ED: Temperature 90.7, pulse 108, respiratory rate 22, BP 132/92, pulse ox 98% on room air. Laboratory values significant for a lactic acid of 3.4 and a leukocytosis of 22. CT of the abdomen/pelvis shows unchanged left renal calculus without hydronephrosis. UA consistent with urinary tract infection. CBC/BMP: 05/19/17 1457 05/19/17 1457 Significant Findings Laboratory Tests Test 05/18/17 09:33 05/18/17 09:56 05/19/17 14:57 Arterial Blood pH 7.43 (7.380-7.420) Arterial Blood Partial Pressure CO2 34 mmHg (38-42) Arterial Blood Oxygen Content 11.3 Vol % (12.0-20.0) Blood Gas Hemoglobin 8.3 G/DL (12.0-16.0) White Blood Count 14.7 TH/MM3 (4.0-11.0) Red Blood Count 2.82 MIL/MM3 (4.00-5.30) 2.78 MIL/MM3 (4.00-5.30) Hemoglobin 8.2 GM/DL (11.6-15.3) 8.1 GM/DL (11.6-15.3) Hematocrit 24.8 % (35.0-46.0) 23.7 % (35.0-46.0) Neutrophils (%) (Auto) 79.3 % (16.0-70.0) Neutrophils # (Auto) 11.7 TH/MM3 (1.8-7.7) Monocytes # (Auto) 1.1 TH/MM3 (0-0.9) 1.1 TH/MM3 (0-0.9) D-Dimer Quantitative (PE/DVT) 1.69 MG/L FEU (0.00-0.50) Random Glucose 156 MG/DL (74-106) 127 MG/DL (74-106) Albumin 2.3 GM/DL (3.4-5.0) Calcium Level 7.7 MG/DL (8.5-10.1) 7.8 MG/DL (8.5-10.1) Phosphorus Level 2.0 MG/DL (2.5-4.9) Aspartate Amino Transf (AST/SGOT) 11 U/L (15-37) Sodium Level 135 MEQ/L (136-145) Estimat Glomerular Filtration Rate 72 ML/MIN (>89) 88 ML/MIN (>89) Monocytes (%) (Auto) 11.5 % (0.0-8.0) Potassium Level 3.2 MEQ/L (3.5-5.1) Iron Level 15 MCG/DL (50-170) Percent Iron Saturation 4.8 % (20-50) Imaging Last Impressions Chest X-Ray 05/18/17 0000 Signed Impressions: Service Date/Time: Thursday, May 18, 2017 08:18 - CONCLUSION: No acute disease. No significant change has occurred. Dillon Wan MD CT Angiography 05/18/17 0000 Signed Impressions: Service Date/Time: Thursday, May 18, 2017 11:48 - CONCLUSION: Negative for pulmonary emboli. Small patchy area of airspace disease in infiltrate anteriorly in the left upper lobe Dillon Wan MD Abdomen/Pelvis CT 05/16/17 1452 Signed Impressions: Service Date/Time: Tuesday, May 16, 2017 15:53 - CONCLUSION: 1. No significant change in the central left renal calculus with no definite hydronephrosis. 2. The right kidney is unremarkable. 3. There is a small calcified gallstone. Juarez Barker MD Hospital Course Patient was admitted with severe sepsis, with fever, tachycardia, leukocytosis of 24, tachypnea with respiratory rate 22. Urinalysis with white blood cell clumps, urine culture with mixed shawna. Blood cultures with Escherichia coli turns out to be pansensitive. Patient improved with broad-spectrum antibiotics. Leukocytosis returned to normal range. Patient had an acute kidney injury on admission with creatinine 1.47 which normalized with IV fluids. Imaging shows left renal calculus, no hydronephrosis. Urology was consulted, recommends follow-up as outpatient for treatment of nephrolithiasis. Patient will be discharged on Levaquin to complete treatment course. Close follow-up with urology, primary care. Patient was also found to have hypoxia, with CT pulmonary angiogram negative for embolism, however did show small patchy area of airspace disease in the left upper lobe. Hypoxia resolved with patient 90% on room air at discharge. Suspect atelectasis which was exacerbated by bed rest and narcotics.. She'll be sent home with albuterol as needed for shortness of breath. Follow-up with pulmonology as outpatient. For problem-based summary from most recent progress note, please see below. // Severe sepsis on admission //UTI Leukocytosis, elevated lactic acid, tachycardia Patient with history of UTIs requiring hospitalization, last discharged on 3 day course of Bactrim. Urology recommended 2 week course at that time. UA significant for 50 WBCs, moderate leukocyte esterase Urine, blood cultures pending Rocephin; tailor antibiotics once sensitivities resolved Repeat lactic acid pending IV fluid hydration Monitor for signs of septic shock = Blood pressure continues acceptable, however tachycardia, fever 102.5 today, worsening leukocytosis. Positive blood cultures for Escherichia coli. Repeat blood cultures ordered. Switch antibiotics to Zosyn. Infectious disease consult ordered = Lactate 1.0 today. Follow-up infectious disease recommendations. Continue IV Zosyn. Follow up blood cultures sensitivities. Repeat blood culture 05/18 negative so far. = 05/19. Follow-up Escherichia coli sensitivities. Infectious disease following. Continue antibiotics. = Once is 18. Escherichia coli sensitive to Levaquin. Discharge home on Levaquin 10 day course complete treatment. Follow-up with urology and primary care. Patient conveys understanding. // Nephrolithiasis CT of the abdomen/pelvis shows left renal calculus without hydronephrosis Patient with significant left CVA tenderness and recurrent UTIs Urology consulted, appreciate recommendations. No need for emergent procedures. = Follow-up urology as outpatient. Patient conveys understanding. //GIAN Cr 1.47, baseline 0.66 IVF hydration Monitor renal function == Creatinine 1.22. Improved. Continue to monitor. Continue IV fluids. = 05/18 creatinine 0.85. Much improved. = Resolved //Shortness of breath. Resolved. //Hypoxemic respiratory failure. Resolved. Patient in the low 80s on room air this morning. D-dimer 1.7. CT pulmonary angiogram negative for pulmonary embolism, however does show some left upper lobe infiltrate. Continue IV Zosyn. Recently visualized, appears to be dependent atelectasis secondary to abdominal distention. We'll order incentive spirometry and Acapella. Started on duo nebs. Continue on IV Zosyn. Consult pulmonology. = 05/19. This appears to be much improved, however patient still hypoxic. Pulmonology consultation pending. = 05/20. Patient 98% on room air this morning. This is likely secondary to atelectasis, exacerbated by narcotics and extended bedrest. Discharge patient home with albuterol as needed for shortness of breath. Follow-up with pulmonology as outpatient. //Anemia. 11 yesterday 8.2 from 9.2, from 12.2 on admission. =Likely secondary to dilution from IV fluids. = No Signs of bleeding =Follow up CBC today. = 05/20. Patient reports chronic history of anemia. She does report heavier menstrual periods for the past 6 months. We'll discharge home on iron supplementation. She agrees to follow up with primary care, obtain appropriate workup. Pt Condition on Discharge: Good Discharge Disposition: Discharge Home Discharge Time: > 30 minutes Discharge Instructions DIET: Follow Instructions for: Heart Healthy Diet Activities you can perform: Regular-No Restrictions Follow up Referrals: PCP Follow-up - 1 Week with Ana Pickard Pulmonology - 1 Week with Duncan Song MD Urology - 3-5 Days with Salvador Pires MD New Medications: Albuterol 18 GM Inh (Ventolin Hfa 18 GM Inh) 90 Mcg/Act Aer 2 PUFF INH Q4-6H PRN for SHORTNESS OF BREATH, #1 INHALER 0 Refills Ferrous Sulfate (Ferrous Sulfate) 325 Mg (65 Mg Iron) Tablet 325 MG PO BIDPC for Nutritional Supplement, #60 TAB 0 Refills Levofloxacin (Levaquin) 750 Mg Tablet 750 MG PO DAILY for Infection, #10 TAB 0 Refills Polyethylene Glycol 3350 Powder (Miralax Powder) 17 Gm Powd 17 GM PO DAILY for Constipation, #1 CAN 0 Refills Mix and dissolve one measuring cap-ful (17 grams) in water or juice. Manny Calles MD May 20, 2017 10:20
[2017-05-20 12:38] LABS: BASOPHIL % 0.6 % (0.0-2.0); EOSINOPHIL # 0.2 TH/MM3 (0-0.4); EOSINOPHIL % 1.9 % (0.0-4.0); HEMATOCRIT 24.7 % (35.0-46.0); HEMOGLOBIN 8.4 GM/DL (11.6-15.3); LYMPH % 25.2 % (9.0-44.0); MEAN CELL VOLUME 85.8 FL (80.0-100.0); MEAN CORPUSCULAR HGB CONC 33.8 % (32.0-36.0); MEAN PLATELET VOLUME 7.9 FL (7.0-11.0); MONO % 10.2 % (0.0-8.0); MONOCYTE # 0.8 TH/MM3 (0-0.9); NEUT % 62.1 % (16.0-70.0); PLATELET COUNT 273 TH/MM3 (150-450); RED BLOOD COUNT 2.88 MIL/MM3 (4.00-5.30); RED CELL DISTRIBUTION WIDTH 14.8 % (11.6-17.2)
[2017-05-20 12:57] LABS: BICARBONATE 30.2 MEQ/L (21.0-32.0); CALCIUM 8.2 MG/DL (8.5-10.1); CREATININE 0.71 MG/DL (0.50-1.00)
[2017-05-20] MEDS ORDERED: POTASSIUM CHLORIDE 10 MEQ CONTROLLED RELEASE TAB PO ONE (13:45)
== END 2017-05-20 14:14 | disposition home or self-care (01) | DRG 871 ==
LOC: NEPE 13:50 → NEDA 16:54 → N05A 18:56
PROVIDERS: ADMIT Internal Medicine; ATTEND Internal Medicine
DX: A41.9 Sepsis, unspecified organism (principal); J96.91 Respiratory failure, unspecified with hypoxia; N17.9 Acute kidney failure, unspecified; Z68.41 Body mass index [BMI] 40.0-44.9, adult; J98.11 Atelectasis; N10 Acute pyelonephritis; E66.9 Obesity, unspecified; R65.20 Severe sepsis without septic shock; B96.20 Unspecified Escherichia coli [E. coli] as the cause of diseases classified elsewhere; N20.0 Calculus of kidney; Z87.440 Personal history of urinary (tract) infections; F17.210 Nicotine dependence, cigarettes, uncomplicated; F12.90 Cannabis use, unspecified, uncomplicated; D64.9 Anemia, unspecified
CPT/HCPCS: 36600; 71045; 71275; 74176; 80048; 80053; 80069; 80076; 81001; 82728; 82805; 83540; 83550; 83605; 83690; 83735; 84702; 84703; 85025; 85379; 87040; 87086; 87186; 87205; 94150; 94618; 94640; 94664; 94667; 94668; 96365; 96375; J0696; J1644; J1885; J2270; J2405; J2543; J7030; Q9967